=== PATIENT | female | born 1970 | race Caucasian/White ===

== ENCOUNTER 2020-07-26 09:12 | Outpatient (REF) | payer OTHER, SELFPAY ==
[2020-07-26 10:06] LABS: Anion Gap 11 (12-20); Blood Urea Nitrogen 11 mg/dL (9-16); Calcium 9.4 mg/dL (8.4-10.2); Carbon Dioxide 28 mmol/L (22-29); Chloride 102 mmol/L (96-108); Estimated Glomerular Filt Rate > 60; Glucose Random 121 mg/dL (60-115); Potassium 4.3 mmol/l (3.3-5.1); Sodium 137 mmol/L (135-145)
== END 2020-07-26 09:13 | disposition home or self-care (01) ==
LOC: HO.LAB 09:12
PROVIDERS: Visit Provider Hospitalist
DX: M79.89 Other specified soft tissue disorders (principal)
CPT/HCPCS: 80048

== ENCOUNTER → 2020-08-05 15:41 | Outpatient (BNVA) | payer OTHER, SELFPAY | PROVIDERS: PCP Internal Medicine; Referring Provider Internal Medicine; Visit Provider Surgery | DX: E66.01 Morbid (severe) obesity due to excess calories (principal); Z68.42 Body mass index [BMI] 45.0-49.9, adult | CPT/HCPCS: 99214 ==

== ENCOUNTER 2020-08-06 12:51 | Outpatient (REF) | payer OTHER, SELFPAY ==
--- NOTE | 2020-08-06 14:09 | XR_ITS ---
EXAMINATION: XR HAND, RIGHT CLINICAL INFORMATION: Fibromyalgia COMPARISON: None TECHNIQUE: PA, lateral, and oblique views of the right hand. FINDINGS: The bones and soft tissues are normal. No fracture. Alignment is anatomic. Joint spaces are maintained. No erosions or soft tissue calcifications. IMPRESSION: Normal right hand.
== END 2020-08-06 12:52 | disposition home or self-care (01) ==
LOC: HO.XRAY 12:51
PROVIDERS: PCP Internal Medicine; Referring Provider Internal Medicine; Visit Provider Student in an Organized Health Care Education/Training Program
DX: M79.7 Fibromyalgia (principal)
CPT/HCPCS: 73130; 99213

== ENCOUNTER 2020-08-09 15:33 | Outpatient (REF) | payer OTHER, SELFPAY | END 2020-08-09 15:34 | disposition home or self-care (01) | LOC: HO.LAB 15:33 | PROVIDERS: PCP Internal Medicine; Visit Provider Internal Medicine | DX: Z20.828 Contact with and (suspected) exposure to other viral communicable diseases (principal) | CPT/HCPCS: 87635 ==

== ENCOUNTER → 2020-08-13 11:16 | Outpatient (BNVA) | payer OTHER, SELFPAY | PROVIDERS: PCP Internal Medicine; Referring Provider Internal Medicine; Visit Provider Hospitalist | DX: G47.33 Obstructive sleep apnea (adult) (pediatric) (principal); J45.40 Moderate persistent asthma, uncomplicated; J40 Bronchitis, not specified as acute or chronic; Z99.89 Dependence on other enabling machines and devices | CPT/HCPCS: 99212 ==

== ENCOUNTER → 2020-09-10 08:02 | Outpatient (BNVA) | payer OTHER, SELFPAY | PROVIDERS: Visit Provider Physician Assistant | DX: E66.01 Morbid (severe) obesity due to excess calories (principal); Z68.42 Body mass index [BMI] 45.0-49.9, adult | CPT/HCPCS: Q3014 ==

== ENCOUNTER → 2020-09-24 08:10 | Outpatient (BNVA) | payer OTHER, SELFPAY | PROVIDERS: PCP Internal Medicine; Visit Provider Physician Assistant | DX: E66.01 Morbid (severe) obesity due to excess calories (principal); Z68.42 Body mass index [BMI] 45.0-49.9, adult | CPT/HCPCS: Q3014 ==

== ENCOUNTER → 2020-10-08 08:07 | Outpatient (BNVA) | payer OTHER, SELFPAY | PROVIDERS: PCP Internal Medicine; Visit Provider Physician Assistant | DX: E66.01 Morbid (severe) obesity due to excess calories (principal); Z68.42 Body mass index [BMI] 45.0-49.9, adult | CPT/HCPCS: Q3014 ==

== ENCOUNTER → 2020-10-31 08:22 | Outpatient (BNVA) | payer OTHER, SELFPAY | PROVIDERS: PCP Internal Medicine; Visit Provider Surgery | DX: Z76.89 Persons encountering health services in other specified circumstances (principal) ==

== ENCOUNTER 2020-11-28 19:47 | Emergency (ER) | payer OTHER, SELFPAY ==
--- NOTE | ~2020-11-28 | XR_ITS ---
EXAMINATION: CHEST 2 VIEWS CLINICAL INFORMATION: Right-sided pain. COMPARISON: 10/19/2019. TECHNIQUE: PA and lateral views of the chest were obtained. FINDINGS: The cardiac silhouette is not enlarged. The mediastinal and hilar contours are unremarkable. There are neither pleural effusions nor pneumothoraces. There are no consolidations. The osseous structures are stable. XR/XR chest 2V IMPRESSION: No evidence for acute disease.
--- NOTE | ~2020-11-28 | US_ITS ---
EXAMINATION: ABDOMINAL ULTRASOUND LIMITED CLINICAL INFORMATION: Right upper quadrant pain. COMPARISON: None. TECHNIQUE: Real-time imaging of the right upper quadrant abdominal viscera. FINDINGS: PANCREAS: The visualized pancreatic head and body are normal in appearance. The remainder of the pancreas is obscured from visualization by the overlying bowel gas. LIVER: The liver is of normal size and diffuse increased echogenicity without focal lesions nor intrahepatic biliary ductal dilation. GALLBLADDER: Normal. The gallbladder is physiologically distended without evidence of stones, sludge, polyps, wall thickening or pericholecystic fluid. COMMON BILE DUCT: Normal in caliber measuring 0.3 cm in diameter. RIGHT KIDNEY: Normal. No hydronephrosis. No renal calculi or focal parenchymal lesions. The kidney measures 11.2 cm in maximum dimension. FREE FLUID: None. US/US abdomen limited IMPRESSION: Liver of diffuse increased echogenicity without focal lesions. The appearance is nonspecific, but consistent with fatty infiltration. Neither cholelithiasis nor cholecystitis.
--- NOTE | ~2020-11-28 | CT_ITS ---
EXAMINATION: CT ABDOMEN AND PELVIS WITH CONTRAST CLINICAL INFORMATION: Right upper quadrant pain. COMPARISON: Multiple prior exams are reviewed. The most recent is from 11/28/2020. TECHNIQUE: Contiguous axial thin section helical images of the abdomen and pelvis were performed following the administration of 85 mL of intravenous Omnipaque 350. The data set was reformatted in the coronal and sagittal planes and reviewed on an independent workstation. DLP: 979 mGy-cm. FINDINGS: The visualized lung bases are clear. The visualized portions of the heart are unremarkable. The liver is of normal size and diffuse decreased attenuation without focal lesions nor intrahepatic biliary ductal dilation. A normal gallbladder is identified. There is no wall thickening or discernible pericholecystic fluid. The spleen, pancreas, adrenal glands are unremarkable. Both kidneys are of normal size and attenuation without hydronephrosis or nephrolithiasis. Following the administration of IV contrast, prompt symmetric nephrograms are displayed. There is no abdominal free fluid. There is neither mesenteric nor retroperitoneal lymphadenopathy. There is scattered sigmoid diverticulosis without evidence of diverticulitis; otherwise, unremarkable unopacified loops of small and large bowel are identified. A normal appendix is identified. There is no pelvic free fluid. The urinary bladder is unremarkable. There is neither pelvic nor inguinal lymphadenopathy. Bone windows: Neither sclerotic nor lytic bone lesions are identified. CT/CT abdomen pelvis w con IMPRESSION: No acute abdominal or pelvic inflammatory or infectious processes. Hepatic steatosis. Automated exposure control (Care Dose) Adjustment of the mA and/or kv according to patient size (this includes techniques or standardized protocols for targeted exams where dose is matched to indication / reason for exam; i.e. extremities or head).
[2020-11-28 19:58] VITALS: BP 156/87; PULSE 87; RESP 18; TEMP 37.1; O2SAT 97; BMI 47.7
--- NOTE | 2020-11-28 22:05 | ED_ITS ---
HPI - General Adult General Chief complaint: General Medical Stated complaint: Back pain Time Seen by Provider: 11/28/20 21:46 Source: patient Mode of arrival: ambulatory History of Present Illness HPI narrative: This is a 50-year-old female who states that she has been having right upper quadrant pain radiating into the back for approximately 1 week that is associated with nausea worsens with sitting and improves with standing and is so she with some mild diarrhea and urinary frequency. Otherwise, she denies any fevers, chills, vomiting, cough. She states that she does have a history of hysterectomy but still has her gallbladder and appendix. Related Data Home Medications Medication Instructions Recorded Confirmed albuterol sulfate 2.5 mg INHALATION Q6H 08/05/20 10/08/20 albuterol sulfate 90 mcg/actuation 2 puff INHALATION QID 08/05/20 10/08/20 aerosol inhaler fluticasone furoate 100 1 inh INHALATION DAILY 08/05/20 10/08/20 mcg-vilanterol 25 mcg/dose inhalation powder furosemide 20 mg tablet 20 mg PO DAILY 08/05/20 10/08/20 oxygen-air delivery systems #1 08/05/20 10/08/20 pantoprazole 40 mg tablet,delayed 40 mg PO DAILY 08/05/20 10/08/20 release umeclidinium 62.5 mcg/actuation 1 inh INHALATION BEDTIME 08/05/20 10/08/20 blister powder for inhalation venlafaxine 75 mg capsule,extended 75 mg PO BEDTIME 08/05/20 10/08/20 release 24 hr vitamin A 8,000 unit capsule 10,000 unit PO DAILY cap 08/05/20 10/08/20 gabapentin 300 mg capsule 600 mg PO BEDTIME cap 08/06/20 10/08/20 prednisone 10 mg tablet 10 mg PO DAILY 10/08/20 10/08/20 Previous Rx's Medication Instructions Recorded montelukast 10 mg tablet 10 mg PO DAILY #90 tab 11/07/20 Allergies Allergy/AdvReac Type Severity Reaction Status Date / Time No Known Allergies Allergy Verified 08/13/20 11:52 [No Known Allergies*] Review of Systems Review of Systems: Pertinent positives and negatives as stated in HPI and 10 point review of systems is otherwise negative. PMFSH Past Medical History Source: nursing notes reviewed Medical History Asthma Bronchitis Chronic back pain Chronic chest pain COVID-19 Fibromyalgia Fibromyalgia Lumbar spondylosis Migraine headache Morbid obesity with BMI of 45.0-49.9, adult Obstructive sleep apnea TOPHER on CPAP Surgical History History of bilateral carpal tunnel release History of History of colonoscopy History of esophagogastroduodenoscopy (EGD) History of neck surgery History of partial hysterectomy History of right oophorectomy Other specified postprocedural states Family History Family History Father Pacemaker Cardiovascular disease Diabetes mellitus Mother Lupus Brother Seizure disorder Cardiovascular disease Brother No problems noted. Brother No problems noted. Brother No problems noted. Sister No problems noted. Sister No problems noted. Son No problems noted. Daughter No problems noted. Daughter No problems noted. Social History Social History Alcohol intake: never Smoking Status: Never smoker Advance Directives: No Advance Directives Information Provided: Yes Physical Exam Vital Signs: Vital Signs: Last Vital Signs Temp 98.2 F 11/28/20 22:20 Pulse 72 11/29/20 00:00 Resp 18 11/29/20 00:00 BP 120/61 11/29/20 00:00 Pulse Ox 99 11/29/20 00:00 Body Mass Index 47.7 VITAL SIGNS: Reviewed. GENERAL: Well developed, well nourished, moderate distress. NOSE: Nares patent bilateral OROPHARYNX: no oral lesions noted, posterior pharynx clear NECK: Supple, no adenopathy LUNGS: Normal breath sounds. No adventitious sounds or accessory muscle use. SpO2<97> CARDIOVASCULAR: Regular rate and rhythm without noted murmurs, no JVD or lower extremity edema. ABDOMEN: Obese, Soft, tenderness in the right upper quadrant without CVA tenderness, non-distended with bowel sounds. NEUROLOGIC: Alert and oriented x 4. Strength and sensation to light touch were grossly intact x 4. Course Course Course Narrative: This is a 50-year-old female with history and clinical presentation suggestive of possible cholecystitis, choledocholithiasis, pancreatitis. I doubt pneumonia, diverticulitis, renal colic. On review of all the investigations there is no evidence of cholecystitis, choledocholithiasis, cholelithiasis, pancreatitis, pneumonia, renal colic. Suspected this time this is primarily muscular strain for which patient is already receiving medications from her primary care provider. She was informed of all results and findings and encouraged to continue with the current regimen with the addition of a lidocaine patch for additional symptom relief. Medical Decision Making Lab Data Result diagrams: 11/28/20 22:19 11/28/20 22:19 Labs: Lab Results 11/28/20 11/28/20 Range/Units 22:19 22:19 WBC 7.6 (4.8-10.8) X10*3/uL RBC 4.45 (4.20-5.50) X10*6/uL Hgb 12.9 (12.0-16.0) g/dl Hct 39.5 (37-47) % MCV 88.8 (80-98) fL MCH 29.0 (27.0-33.0) pg MCHC 32.7 (31.0-35.0) g/dl RDW 13.7 (11.0-16.0) % Plt Count 249 (160-400) X10*3/uL MPV 10.0 (9.4-12.3) fL Immature Gran % (Auto) 0.3 (0.0-0.4) % Neut % (Auto) 56.0 (45-73) % Lymph % (Auto) 34.7 (20-40) % Hinds % (Auto) 7.4 (2-11) % Eos % (Auto) 1.2 (0-4) % Baso % (Auto) 0.4 (0-2) % Lymph # (Auto) 2.6 (1.2-4.9) X10*3/uL Hinds # (Auto) 0.6 (0.1-1.2) X10*3/uL Eos # (Auto) 0.1 (0.0-0.4) X10*3/uL Baso # (Auto) 0.0 (0.0-0.2) X10*3/uL Abs Immat Gran (auto) 0.02 (0.00-0.03) X10*3/uL Absolute Neuts (auto) 4.2 (2.0-8.3) X10*3/uL Absolute Nucleated RBC 0.000 (0.0-0.012) X10*3/uL Nucleated RBC % (auto) 0.0 (0.0-0.2) /100WBC Sodium 140 (135-145) mmol/L Potassium 4.3 (3.3-5.1) mmol/L Chloride 105 (96-108) mmol/L Carbon Dioxide 27 (22-29) mmol/L Anion Gap 12 (12-20) BUN 10 (9-16) mg/dL Creatinine 0.65 (0.5-1.4) mg/dL Estim Creat Clear Calc 125.1 Estimated GFR > 60 Random Glucose 96 (60-115) mg/dL Calcium 9.3 (8.4-10.2) mg/dL Total Bilirubin 0.4 (0.0-1.0) mg/dL AST 19 (5-31) U/L ALT 26 (0-31) U/L Alkaline Phosphatase 76 (39-117) U/L Total Protein 7.4 (6.5-8.0) g/dL Albumin 4.1 (3.5-5.0) g/dL Lipase 8 (8-78) U/L Discharge Plan Discharge Clinical Impression: Muscle strain Patient Disposition: Home, Self-Care Instructions: Muscle Strain (ED) Additional Instructions: 1. Tylenol 1000 mg, por v?a oral, cada 6 horas seg?n sea necesario para controlar el dolor. No exceda los 4000 mg en 24 horas. 2. Contin?e con los medicamentos que le hanks recetado fowler proveedor de atenci?n primaria. 3. Parche de lidoca?na, disponible en todos los [facility] / [facility] / [facility], apl?quelo en el ?jonah de m?xima sensibilidad lori se indica en el empaque exterior. No dude en volver al servicio de urgencias si experimenta un empeoramiento ronen de los s?ntomas o si presenta dificultad para respirar. Prescriptions: No Action montelukast 10 mg tablet 10 mg PO DAILY Qty: 90 RF: 3 venlafaxine 75 mg capsule,extended release 24hr 75 mg PO BEDTIME RF: 0 vitamin A 8,000 unit capsule 10,000 unit PO DAILY RF: 0 albuterol sulfate 2.5 mg /3 mL (0.083 %) solution for nebulization 2.5 mg inhalation Q6H RF: 0 (DME) oxygen-air delivery systems Device See Rx Instructions .ROUTE .MEDSUPPLY Qty: 1 RF: 0 pantoprazole 40 mg tablet,delayed release (DR/EC) 40 mg PO DAILY RF: 0 albuterol sulfate [ProAir HFA] 90 mcg/actuation HFA aerosol inhaler 2 puff inhalation QID RF: 0 Incruse Ellipta 62.5 mcg/actuation blister with device 1 inh inhalation BEDTIME RF: 0 Breo Ellipta 100-25 mcg/dose blister with device 1 inh inhalation DAILY RF: 0 furosemide [Lasix] 20 mg tablet 20 mg PO DAILY RF: 0 gabapentin 300 mg capsule 600 mg PO BEDTIME RF: 0 prednisone 10 mg tablet 10 mg PO DAILY RF: 0 Referrals: Zaina Sam DO [Primary Care Provider] - 2 days (Revaluation management after seen in the emergency department for persistent right sided back pain. Workup was negative for evidence of pneumonia, cholecystitis, pancreatitis, renal colic.) Print Language: Gibraltarian
[2020-11-28] MEDS: Ketorolac Tromethamine 15 MG/ML VIAL IVPUSH (22:15)
[2020-11-28] MEDS: 0.9 % Sodium Chloride 1,000 ML 999 ML IV (22:15)
[2020-11-28 22:20] VITALS: BP 132/71; PULSE 65; RESP 16; TEMP 36.8; O2SAT 98
[2020-11-28 22:23] LABS: MANUAL DIFF FLAG NO
[2020-11-28 22:25] LABS: Basophils Percent Auto 0.4 % (0-2); Eosinophils Absolute Auto 0.1 X10*3/uL (0.0-0.4); Eosinophils Percent Auto 1.2 % (0-4); Hematocrit 39.5 % (37-47); Hemoglobin 12.9 g/dl (12.0-16.0); Imm Gran Abs Auto 0.02 X10*3/uL (0.00-0.03); Imm Gran Pct Auto 0.3 % (0.0-0.4); Lymphocytes Absolute Auto 2.6 X10*3/uL (1.2-4.9); Lymphocytes Percent Auto 34.7 % (20-40); Mean Corpuscular HGB Conc 32.7 g/dl (31.0-35.0); Mean Corpuscular Volume 88.8 fL (80-98); Monocytes Absolute Auto 0.6 X10*3/uL (0.1-1.2); Monocytes Percent Auto 7.4 % (2-11); Neutrophils Absolute Auto 4.2 X10*3/uL (2.0-8.3); Platelet Count 249 X10*3/uL (160-400); Red Blood Count 4.45 X10*6/uL (4.20-5.50); Red Cell Distribution Width 13.7 % (11.0-16.0); White Blood Count 7.6 X10*3/uL (4.8-10.8)
[2020-11-28 22:55] LABS: Alanine Aminotransferase 26 U/L (0-31); Albumin Level 4.1 g/dL (3.5-5.0); Alkaline Phosphatase 76 U/L (39-117); Anion Gap 12 (12-20); Aspartate Amino Transferase 19 U/L (5-31); Bilirubin Total 0.4 mg/dL (0.0-1.0); Blood Urea Nitrogen 10 mg/dL (9-16); Calcium 9.3 mg/dL (8.4-10.2); Carbon Dioxide 27 mmol/L (22-29); Chloride 105 mmol/L (96-108); Creatinine Clr Calc Pharmacy 125.1; Estimated Glomerular Filt Rate > 60; Glucose Random 96 mg/dL (60-115); Lipase 8 U/L (8-78); Potassium 4.3 mmol/L (3.3-5.1); Sodium 140 mmol/L (135-145); Total Protein 7.4 g/dL (6.5-8.0)
--- NOTE | 2020-11-28 23:14 | PC.NURSE ---
PATIENT AWAY FOR ULTRASOUND.
[2020-11-29] VITALS: BP 120/61; PULSE 72; RESP 18; O2SAT 99
[2020-11-29] MEDS: iohexoL 350 MG/ML 100 ML INFUS..BTL 85 ML IV (00:31)
[2020-11-29 01:12] LABS: Glucose Urine UA NEG (NEG); Leukocyte Esterase Urine NEG (NEG); Nitrite Urine NEG (NEG); Specific Gravity - Urine >= 1.030 (1.005-1.025); Urine Blood 1+ (NEG); Urine Ketones NEG (NEG); Urine Protein NEG (NEG-TRACE)
[2020-11-29 01:20] LABS: Appearance Urine CLEAR; Color Urine YELLOW
[2020-11-29 01:31] LABS: Mucus Urine 1+ /LPF; RBC Urine 0-2 /HPF (0); Squamous Epithelial Cell Urine 1+ /LPF; WBC Urine 0 /HPF (0-4)
== END 2020-11-29 02:27 | disposition home or self-care (01) ==
PROVIDERS: Emergency Provider Student in an Organized Health Care Education/Training Program; PCP Internal Medicine
DX: M54.5 Low back pain (principal); R10.11 Right upper quadrant pain; R07.89 Other chest pain; Z86.16 Personal history of COVID-19
CPT/HCPCS: 36415; 71046; 74177; 76705; 80053; 81001; 83690; 85025; 96361; 96374; 99283; 99284; J1885; Q9967

== ENCOUNTER → 2020-12-05 13:34 | Outpatient (BNVA) | payer OTHER, SELFPAY | PROVIDERS: Visit Provider Surgery | DX: E66.01 Morbid (severe) obesity due to excess calories (principal); Z68.42 Body mass index [BMI] 45.0-49.9, adult | CPT/HCPCS: 99212 ==

== ENCOUNTER 2020-12-23 10:07 | Outpatient (REF) | payer OTHER, SELFPAY ==
--- NOTE | ~2020-12-23 | XR_ITS ---
EXAMINATION: XR CHEST CLINICAL INFORMATION: Moderate persistent asthma. COMPARISON: 11/29/2020 TECHNIQUE: 2 views of the chest were obtained. FINDINGS: The lungs are well expanded. There is no focal consolidation, edema, or effusion. Diffuse bronchial wall thickening noted. No pneumothorax. The cardiomediastinal silhouette is within normal limits. No acute osseous abnormality. XR/XR chest 2V IMPRESSION: No dense consolidation. Bronchial wall thickening can be seen with a small airways process such as asthma or atypical/viral infection.
--- NOTE | 2020-12-23 10:47 | ECG_ITS ---
Test Reason : MOD PERSIS ASTHMA Blood Pressure : / mmHG Vent. Rate : 067 BPM Atrial Rate : 067 BPM P-R Int : 128 ms QRS Dur : 088 ms QT Int : 408 ms P-R-T Axes : 051 049 039 degrees QTc Int : 431 ms Normal sinus rhythm Normal ECG When compared with ECG of 12-JUN-2020 17:31, No significant change was found Referred By: Susana Maxwell Electronically Signed By:Emiliano Shaikh
[2020-12-27 01:57] LABS: Vitamin A 34 mcg/dL (38-98)
== END 2020-12-23 10:08 | disposition home or self-care (01) ==
LOC: HO.LAB 10:07
PROVIDERS: Absent Provider Physician Assistant; PCP Internal Medicine; Visit Provider Surgery
DX: E66.01 Morbid (severe) obesity due to excess calories (principal); E50.9 Vitamin A deficiency, unspecified; J45.40 Moderate persistent asthma, uncomplicated; G47.33 Obstructive sleep apnea (adult) (pediatric); R06.02 Shortness of breath; Z01.818 Encounter for other preprocedural examination; Z99.89 Dependence on other enabling machines and devices; Z68.42 Body mass index [BMI] 45.0-49.9, adult; Z79.899 Other long term (current) drug therapy; Z71.3 Dietary counseling and surveillance
CPT/HCPCS: 36415; 71046; 84590; 93005; 99212

== ENCOUNTER → 2021-01-30 09:58 | Outpatient (BNVA) | payer OTHER, SELFPAY | PROVIDERS: PCP Internal Medicine; Visit Provider Surgery | DX: E66.01 Morbid (severe) obesity due to excess calories (principal); Z68.42 Body mass index [BMI] 45.0-49.9, adult | CPT/HCPCS: 99212 ==

== ENCOUNTER 2021-02-21 09:40 | Outpatient (REF) | payer OTHER, SELFPAY ==
[2021-02-25 21:22] LABS: Vitamin A 36 mcg/dL (38-98)
== END 2021-02-21 09:41 | disposition home or self-care (01) ==
LOC: HO.LAB 09:40
PROVIDERS: PCP Internal Medicine; Visit Provider Surgery
DX: Z01.818 Encounter for other preprocedural examination (principal); E66.01 Morbid (severe) obesity due to excess calories; Z68.42 Body mass index [BMI] 45.0-49.9, adult; E50.9 Vitamin A deficiency, unspecified
CPT/HCPCS: 36415; 84590; Q3014

== ENCOUNTER → 2021-04-08 10:34 | Outpatient (BNVA) | payer OTHER, SELFPAY | PROVIDERS: PCP Internal Medicine; Visit Provider Physician Assistant | DX: E66.01 Morbid (severe) obesity due to excess calories (principal); Z68.42 Body mass index [BMI] 45.0-49.9, adult | CPT/HCPCS: 99212 ==

== ENCOUNTER → 2021-04-10 11:02 | Outpatient (BNVA) | payer OTHER, SELFPAY | PROVIDERS: PCP Internal Medicine; Visit Provider Student in an Organized Health Care Education/Training Program | DX: M47.814 Spondylosis without myelopathy or radiculopathy, thoracic region (principal); M47.816 Spondylosis without myelopathy or radiculopathy, lumbar region; M79.7 Fibromyalgia; E66.01 Morbid (severe) obesity due to excess calories; G47.33 Obstructive sleep apnea (adult) (pediatric); Z68.42 Body mass index [BMI] 45.0-49.9, adult; Z99.89 Dependence on other enabling machines and devices; Z79.899 Other long term (current) drug therapy | CPT/HCPCS: 99212 ==

== ENCOUNTER → 2021-05-02 08:09 | Outpatient (BNVA) | payer OTHER, SELFPAY | PROVIDERS: PCP Internal Medicine; Visit Provider Physician Assistant | DX: E66.01 Morbid (severe) obesity due to excess calories (principal); Z68.42 Body mass index [BMI] 45.0-49.9, adult | CPT/HCPCS: Q3014 ==

== ENCOUNTER → 2021-05-08 08:08 | Outpatient (BNVA) | payer OTHER, SELFPAY | PROVIDERS: PCP Internal Medicine; Visit Provider Dietitian, Registered ==

== ENCOUNTER → 2021-05-13 14:39 | Outpatient (BNVA) | payer OTHER, SELFPAY | PROVIDERS: PCP Internal Medicine; Referring Provider Internal Medicine; Visit Provider Surgery ==

== ENCOUNTER → 2021-07-02 13:01 | Outpatient (BNVA) | payer OTHER, SELFPAY | PROVIDERS: PCP Internal Medicine; Visit Provider Nurse Practitioner Family | DX: R00.2 Palpitations (principal); R07.9 Chest pain, unspecified; G89.29 Other chronic pain | CPT/HCPCS: 99212 ==

== ENCOUNTER → 2021-07-04 11:19 | Outpatient (BNVA) | payer OTHER, SELFPAY | PROVIDERS: PCP Internal Medicine; Visit Provider Surgery | DX: E66.01 Morbid (severe) obesity due to excess calories (principal); Z68.42 Body mass index [BMI] 45.0-49.9, adult | CPT/HCPCS: 99212 ==

== ENCOUNTER → 2021-07-21 11:28 | Outpatient (REF) | payer OTHER, SELFPAY ==
--- NOTE | 2021-07-21 11:32 | HM_ITS ---
Conclusion: 1. Patient was monitored for total period of 3 days and 20 hours 2. Baseline is normal sinus rhythm with average heart of 79 beats per minute 3. No significant pauses or bradycardia noted 4. Total of 4 isolated PACs noted a cardiac for very rare PACs 5. No patient reported symptoms MTDD
== END ==
LOC: HO.CARD 11:28
PROVIDERS: Visit Provider Nurse Practitioner Family
DX: R00.2 Palpitations (principal); I49.1 Atrial premature depolarization
CPT/HCPCS: 93242

== ENCOUNTER → 2021-07-25 09:22 | Outpatient (BNVA) | payer OTHER, SELFPAY | PROVIDERS: Visit Provider Physician Assistant Surgical | DX: E66.01 Morbid (severe) obesity due to excess calories (principal); Z68.42 Body mass index [BMI] 45.0-49.9, adult | CPT/HCPCS: 99212 ==

== ENCOUNTER → 2021-08-08 08:30 | Outpatient (BNVA) | payer OTHER, SELFPAY | PROVIDERS: Visit Provider Physician Assistant Surgical | DX: E66.01 Morbid (severe) obesity due to excess calories (principal); Z68.42 Body mass index [BMI] 45.0-49.9, adult | CPT/HCPCS: 99212 ==

== ENCOUNTER → 2021-08-13 12:46 | Outpatient (BNVA) | payer OTHER, SELFPAY | PROVIDERS: Visit Provider Nurse Practitioner Family | DX: M79.89 Other specified soft tissue disorders (principal); R00.2 Palpitations; R07.9 Chest pain, unspecified; G89.29 Other chronic pain | CPT/HCPCS: 99212 ==

== ENCOUNTER → 2021-09-01 08:01 | Outpatient (BNVA) | payer OTHER, SELFPAY | PROVIDERS: Visit Provider Physician Assistant Surgical ==

== ENCOUNTER → 2021-09-10 08:04 | Outpatient (BNVA) | payer OTHER, SELFPAY | PROVIDERS: Visit Provider Physician Assistant Surgical | CPT/HCPCS: Q3014 ==

== ENCOUNTER → 2021-09-24 09:28 | Outpatient (BNVA) | payer OTHER, SELFPAY | PROVIDERS: Visit Provider Hospitalist | DX: J45.41 Moderate persistent asthma with (acute) exacerbation (principal); G47.33 Obstructive sleep apnea (adult) (pediatric); J40 Bronchitis, not specified as acute or chronic; Z99.89 Dependence on other enabling machines and devices | CPT/HCPCS: 99212 ==

== ENCOUNTER → 2021-10-14 08:05 | Outpatient (BNVA) | payer OTHER, SELFPAY | PROVIDERS: Visit Provider Physician Assistant Surgical | CPT/HCPCS: Q3014 ==

== ENCOUNTER 2021-12-12 12:49 | Outpatient (REF) | payer OTHER, SELFPAY ==
[2021-12-12 13:41] LABS: MANUAL DIFF FLAG NO
[2021-12-12 14:07] LABS: Basophils Percent Auto 0.3 % (0-2); Eosinophils Absolute Auto 0.1 X10*3/uL (0.0-0.4); Eosinophils Percent Auto 0.9 % (0-4); Hematocrit 39.8 % (37.0-47.0); Hemoglobin 13.1 g/dl (12.0-16.0); Imm Gran Abs Auto 0.02 X10*3/uL (0.00-0.03); Imm Gran Pct Auto 0.3 % (0.0-0.4); Lymphocytes Absolute Auto 2.2 X10*3/uL (1.2-4.9); Lymphocytes Percent Auto 37.2 % (20-40); Mean Corpuscular HGB Conc 32.9 g/dl (31.0-35.0); Mean Corpuscular Hemoglobin 28.7 pg (27.0-33.0); Mean Corpuscular Volume 87.3 fL (80.0-98.0); Mean Platelet Volume 9.8 fL (9.4-12.3); Monocytes Absolute Auto 0.4 X10*3/uL (0.1-1.2); Monocytes Percent Auto 6.6 % (2-11); Neutrophils Absolute Auto 3.2 x10*3/uL (2.0-8.3); Neutrophils Percent Auto 54.7 % (45-73); Platelet Count 265 X10*3/uL (160-400); Red Blood Count 4.56 X10*6/uL (4.20-5.50); Red Cell Distribution Width 13.2 % (11.0-16.0); White Blood Count 5.8 X10*3/uL (4.8-10.8)
[2021-12-12 14:31] LABS: Anion Gap 11 (12-20); Blood Urea Nitrogen 8 mg/dL (9-16); Calcium 9.8 mg/dL (8.4-10.2); Carbon Dioxide 25 mmol/L (22-29); Chloride 104 mmol/L (96-108); Estimated Glomerular Filt Rate > 60; Glucose Random 124 mg/dL (60-115); Potassium 4.4 mmol/L (3.3-5.1); Sodium 136 mmol/L (135-145)
[2021-12-12 14:34] LABS: B Type Natriuretic Peptide 11 pg/mL (<100)
[2021-12-12 14:45] LABS: Erythrocyte Sedimentation Rate 22 MM/HR (0-20)
[2021-12-17 17:26] LABS: Vitamin A 37 mcg/dL (38-98)
== END 2021-12-12 12:50 | disposition home or self-care (01) ==
LOC: HO.LAB 12:49
PROVIDERS: Surgery; PCP Internal Medicine; Visit Provider Hospitalist
DX: Z01.818 Encounter for other preprocedural examination (principal); E50.9 Vitamin A deficiency, unspecified; R06.00 Dyspnea, unspecified; R60.0 Localized edema
CPT/HCPCS: 36415; 80048; 83880; 84590; 85025; 85652; 99212

== ENCOUNTER → 2021-12-15 08:35 | Outpatient (BNVA) | payer OTHER, SELFPAY | PROVIDERS: PCP Internal Medicine; Visit Provider Physician Assistant Surgical | DX: E66.01 Morbid (severe) obesity due to excess calories (principal); Z68.42 Body mass index [BMI] 45.0-49.9, adult | CPT/HCPCS: 99212 ==

== ENCOUNTER → 2022-03-12 14:10 | Outpatient (BNVA) | payer OTHER, SELFPAY | PROVIDERS: PCP Internal Medicine; Visit Provider Hospitalist | DX: J45.41 Moderate persistent asthma with (acute) exacerbation (principal); J40 Bronchitis, not specified as acute or chronic; G47.33 Obstructive sleep apnea (adult) (pediatric); R06.00 Dyspnea, unspecified; R60.0 Localized edema; Z99.89 Dependence on other enabling machines and devices | CPT/HCPCS: 99212 ==

== ENCOUNTER → 2022-04-14 10:54 | Outpatient (BNVA) | payer OTHER, SELFPAY | PROVIDERS: Visit Provider Nurse Practitioner Family | DX: M79.7 Fibromyalgia (principal); M47.816 Spondylosis without myelopathy or radiculopathy, lumbar region; Z79.899 Other long term (current) drug therapy | CPT/HCPCS: 99212 ==

== ENCOUNTER 2022-04-16 09:13 | Outpatient (REF) | payer OTHER, SELFPAY ==
[2022-04-16 09:27] LABS: MANUAL DIFF FLAG NO
[2022-04-16 10:58] LABS: Basophils Percent Auto 0.3 % (0-2); Eosinophils Absolute Auto 0.1 X10*3/uL (0.0-0.4); Hematocrit 36.9 % (37.0-47.0); Imm Gran Abs Auto 0.02 X10*3/uL (0.00-0.03); Imm Gran Pct Auto 0.3 % (0.0-0.4); Lymphocytes Percent Auto 33.3 % (20-40); Mean Corpuscular HGB Conc 32.5 g/dl (31.0-35.0); Mean Corpuscular Hemoglobin 28.6 pg (27.0-33.0); Mean Corpuscular Volume 87.9 fL (80.0-98.0); Mean Platelet Volume 10.5 fL (9.4-12.3); Monocytes Absolute Auto 0.4 X10*3/uL (0.1-1.2); Monocytes Percent Auto 6.1 % (2-11); Neutrophils Absolute Auto 3.5 x10*3/uL (2.0-8.3); Platelet Count 238 X10*3/uL (160-400); Red Cell Distribution Width 13.4 % (11.0-16.0); White Blood Count 5.9 X10*3/uL (4.8-10.8)
[2022-04-16 11:21] LABS: Troponin-I High Sensitivity < 3.5 ng/L (<3.5-17.0)
[2022-04-16 11:41] LABS: Erythrocyte Sedimentation Rate 20 MM/HR (0-20)
[2022-04-17 18:47] LABS: Immunoglobulin E 941 kU/L (<OR=114)
== END 2022-04-16 09:14 | disposition home or self-care (01) ==
LOC: HO.LAB 09:13
PROVIDERS: PCP Internal Medicine; Visit Provider Hospitalist
DX: R06.00 Dyspnea, unspecified (principal); J40 Bronchitis, not specified as acute or chronic; J45.41 Moderate persistent asthma with (acute) exacerbation; Z01.82 Encounter for allergy testing
CPT/HCPCS: 36415; 82785; 84484; 85025; 85652; 86003

== ENCOUNTER → 2022-04-24 12:55 | Outpatient (BNVA) | payer OTHER, SELFPAY | PROVIDERS: PCP Internal Medicine; Visit Provider Nurse Practitioner Family | DX: M47.26 Other spondylosis with radiculopathy, lumbar region (principal); M25.552 Pain in left hip; M62.838 Other muscle spasm | CPT/HCPCS: 99202 ==

== ENCOUNTER → 2022-04-29 07:17 | Outpatient (REF) | payer OTHER, SELFPAY ==
--- NOTE | 2022-04-29 07:19 | CA_ITS ---
Transthoracic Echocardiogram Patient (Last, First, Middle): Hanna Toney, Gender: Female Date of : 1970 Age: 51 Procedure Date: 04/29/2022 Procedure Type: Transthoracic Echocardiogram Location: OP Height: 157.48 cm Weight: 121.11 kg BSA: 2.16 m2 Heart Rate: bpm BP: 115 / 70 mmHg Lead Assembler: TO/VH Referring MD: Perez Krishnan MD Buckle Sewer Machine: Rene Almanza MD Symptoms: I27.20 - Pulmonary hypertension, unspecified Study Quality: Fair ECG Rhythm: Sinus Conclusions: - 1. Normal LV systolic and diastolic function 2. Normal cardiac valvular Doppler is 3. Normal RV systolic pressure 4. No pericardial effusion Findings Left Ventricle Normal left ventricular size, thickness, and systolic function. The visually estimated ejection fraction is between 60-65%. Spectral Doppler is indicative of a normal filling pattern. Right Ventricle Normal right ventricular cavity size and systolic function. Atria Both atria are normal in size. There is no evidence of interatrial shunt. Aortic Valve Normal aortic valve structure and function. There is no aortic valve stenosis. There is no aortic valve regurgitation. Mitral Valve There is mild anterior and posterior mitral leaflet thickening. There is trace mitral valve regurgitation. There is no mitral valve stenosis. Pulmonic Valve The pulmonic valve is likely normal. Tricuspid Valve The right ventricular systolic pressure is normal. There is no evidence of pulmonary hypertension. Great Vessels All visible segments of the aorta are normal in size. The pulmonary artery was not well visualized. Venous The inferior vena cava is normal in size and collapses greater than 50% with inspiration. Pericardium/Pleural There is no evidence of pericardial effusion. Measurements 2D Linear Measurements IVSd: 0.89 0.6-0.9/0.6-1.0 cm LVIDd: 5.30 3.9-5.3/4.2-5.9 cm LVIDd Index: 2.45 2.4-3.2/2.2-3.1 cm/m2 LVIDs: 3.21 2.0-3.6 cm LVPWd: 0.86 0.7-1.1 cm LA Diam: 4.00 2.7-3.8/3.0-4.0 cm LAIDs Index: 1.85 1.5-2.3 cm/m2 LV Mass: 210.05 67-162/88-224 g LV Mass Index: 97.25 43-95/49-115 g/m2 LVOT Diam: 2.00 3.0+(-)1.3 cm 2D Systolic Function EF 4C: 65.10 >55% EF 2C: 59.10 >55% EF BiP: 61.90 >55% Mitral Valve MV Pk E: 1.14 MV PK A: 0.81 MV Decel Time: 276.00 E/A: 1.40 E'Lateral: 11.30 E'Medial: 10.20 E/E' Med: 11.20 E/E' Lat: 10.10 PHT: 81.00 MVA PHT: 2.72 Decel [place]: 4.13 Aortic Valve AoV Pk Davin: 2.03 AoV Mn Davin: 1.33 AoV VTI: 0.43 AoV Pk Grad: 16.00 Aov Mn Grad: 8.00 LACHELLE Cont.VTI: 2.05 LVOT LVOT Pk Davin: 1.23 LVOT Mn Davin: 0.77 LVOT VTI: 0.28 LVOT Pk Grad: 6.00 LVOT Mn Grad: 3.00 LVOT Diam: 2.00 LVOT Area: 3.14 Diastolic Function MV Pk E: 1.14 MV Pk A: 0.81 E/A: 1.40 E'Medial: 10.20 E/E' Med: 11.20 E' Laterial: 11.30 E/E' Lat: 10.10 Right Ventricle TAPSE (mm): 27.00 TVS' Davin: 12.60 Tricuspid Valve TR Pk Davin: 2.28 TR Pk Grad: 21.00 RA Press: 3.00 RVSP: 24.00 Great Vessels Aorta Sinus of Valsalva: 3.10 2.0-3.5 cm Ao Asc: 3.10 2.1-3.4 cm Ao Arch: 2.90 Updated in Other Vendor System with Status of Final Rene Almanza MD electronically signed on 04/29/2022 3:40:52 PM with status of Final
== END ==
LOC: HO.CARD 07:17
PROVIDERS: PCP Internal Medicine; Visit Provider Hospitalist
DX: I27.20 Pulmonary hypertension, unspecified (principal)
CPT/HCPCS: 93306

== ENCOUNTER 2022-04-30 11:33 | Outpatient (REF) | payer OTHER, SELFPAY ==
[2022-04-30 12:17] LABS: D Dimer High Sensitivity 179 NG/ML
[2022-04-30 12:35] LABS: Anion Gap 10 (12-20); Blood Urea Nitrogen 7 mg/dL (9-16); Calcium 9.8 mg/dL (8.4-10.2); Carbon Dioxide 26 mmol/L (22-29); Chloride 105 mmol/L (96-108); Estimated Glomerular Filt Rate > 60; Glucose Random 117 mg/dL (60-115); Potassium 4.3 mmol/L (3.3-5.1); Sodium 137 mmol/L (135-145)
[2022-04-30 13:05] LABS: Erythrocyte Sedimentation Rate 23 MM/HR (0-20)
[2022-05-05 09:32] LABS: Anti Nuclear Antibody Screen NEGATIVE (NEGATIVE)
[2022-05-05 14:07] LABS: Cyclic Citrullinated Peptide <16 UNITS
== END 2022-04-30 11:34 | disposition home or self-care (01) ==
LOC: HO.LAB 11:33
PROVIDERS: PCP Internal Medicine; Visit Provider Hospitalist
DX: R07.81 Pleurodynia (principal); J45.41 Moderate persistent asthma with (acute) exacerbation; R06.00 Dyspnea, unspecified; R60.0 Localized edema; G47.33 Obstructive sleep apnea (adult) (pediatric); Z99.89 Dependence on other enabling machines and devices
CPT/HCPCS: 36415; 80048; 85379; 85652; 86038; 86039; 86200; 99212

== ENCOUNTER 2022-05-25 09:03 | Outpatient (REF) | payer OTHER, SELFPAY ==
--- NOTE | ~2022-05-25 | MR_ITS ---
EXAMINATION: MR LUMBAR SPINE WITHOUT AND WITH CONTRAST CLINICAL INFORMATION: Weakness. History of prior surgery. COMPARISON: MRI scan of the lumbar spine 11/06/2015. TECHNIQUE: MRI of the lumbar spine was obtained using routine sequences with and without contrast. Intravenous contrast: Gadavist 10 mL FINDINGS: VERTEBRAL BODIES AND PARASPINAL STRUCTURES: . There is narrowing of intervertebral disc height with loss of signal from the discs at L2-L3 and L4-L5 with disc desiccation at L3-L4. The vertebral bodies have normal height and contour. There are multilevel degenerative endplate contour changes. There are predominantly fatty endplate signal changes at L4-L5. Vertebral body heights are maintained and no acute fractures are demonstrated. There are areas of increased STIR signal in the left pedicles of L4 on L5 which demonstrates mild enhancement; this is nonspecific and may be consistent with reactive inflammatory/degenerative changes. Overall, marrow signal is homogenous. The visualized retroperitoneal and pelvic structures are unremarkable. CONUS MEDULLARIS AND CAUDA EQUINA: Normal, terminating at the level of T12-L1. Lower thoracic spinal cord normal signal without abnormal enhancement. The cauda equina nerve roots and filum terminale appear normal. SPINAL LEVELS: L1-L2: There is mild bilateral facet arthropathy. There is a shallow posterior disc protrusion without significant mass effect on the thecal sac. There is no central stenosis and the neural foramina are patent bilaterally. L2-L3: There is moderate bilateral facet arthropathy with ligamenta flava hypertrophy. There is a diffuse disc bulge which is relatively broad-based posteriorly and there are bilateral foraminal disc protrusions extending far laterally on the left with impingement on the extraforaminal left L2 and exiting right L2 nerve roots, increased compared to prior imaging. There is narrowing of the subarticular recesses particularly on the left and there is mild to moderate central stenosis. L3-L4: There is moderate to severe bilateral facet arthropathy with ligamenta flava hypertrophy. There are sequelae of a left-sided laminotomy. There is a posterior disc protrusion extending into the neural foramina, more prominently on the left and there is likely mild impingement on the exiting left L3 nerve root. There is narrowing of the bilateral subarticular recesses and there is mild to moderate central stenosis. L4-L5: There is moderate to severe bilateral facet arthropathy with ligamenta flava hypertrophy. There is a broad-based posterior disc protrusion with an extruded component extending behind the body of L4 in the midline and there is flattening of the ventral thecal sac with narrowing the bilateral subarticular recesses. There are bilateral foraminal disc protrusions impinging on the exiting L4 nerve roots. There is moderate to severe central stenosis. L5-S1: There is moderate to severe bilateral facet arthropathy. There is a mild diffuse disc bulge without mass effect on the thecal sac. There is no central stenosis or foraminal nerve root impingement. MR/MR lumbar spine wo/w con IMPRESSION: 1. At L4-L5 there is facet arthropathy and there is a posterior disc protrusion/extrusion with flattening of the ventral thecal sac and narrowing of the subarticular recesses. There is moderate to severe central stenosis. There are bilateral foraminal disc protrusions impinging the exiting L4 nerve roots. 2. At L3-L4 there are sequelae of a left-sided laminotomy. There is a posterior disc protrusion extending into the neural foramina with impingement on the exiting left L3 nerve root. There is mild to moderate central stenosis. 3. At L2-L3 there is bilateral facet arthropathy. There is a disc protrusion extending far laterally on the left with impingement on the extraforaminal left L2 nerve root. There is also impingement on the exiting right L2 nerve root. These findings are increased compared to prior imaging. There is mild to moderate central stenosis.
--- NOTE | ~2022-05-25 | XR_ITS ---
EXAMINATION: XR HIP, LEFT CLINICAL INFORMATION: Pain COMPARISON: None TECHNIQUE: Two views of the left hip. FINDINGS: Bone alignment is normal. No fracture or dislocation is seen. There is mild arthritis at the hip joint with small osteophytes. There is soft tissue calcification adjacent to the left greater trochanter suggestive of tendinitis or bursitis. XR/XR hip LT min 2V IMPRESSION: Mild arthritis at the left hip joint and soft tissue calcifications adjacent to the left greater trochanter.
== END 2022-05-25 09:04 | disposition home or self-care (01) ==
LOC: HO.MRI 09:03
PROVIDERS: Visit Provider Nurse Practitioner Family
DX: M25.552 Pain in left hip (principal); M54.16 Radiculopathy, lumbar region; Z98.890 Other specified postprocedural states
CPT/HCPCS: 72158; 73502; A9585

== ENCOUNTER → 2025-02-08 09:28 | Outpatient (BNVA) | payer MEDICARE, SELFPAY | PROVIDERS: PCP Internal Medicine; Visit Provider Physician Assistant Surgical ==

== ENCOUNTER 2025-02-19 07:17 | Day surgery (SDC) | payer MEDICARE, MEDICAID, SELFPAY ==
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
--- NOTE | 2025-02-15 12:13 | HO.ANESPROP2 ---
Documented by User: Payton Justin NP 02/15/25 12:14 HPI - Anesthesia Eval Consult details Narrative: 54yo F for Upper Endoscopy PMFSH Active Problems Active Problems: All Active Problems Lumbar radiculitis (Acute) H/O lumbosacral spine surgery (Acute) Muscle spasm (Acute) Pleuritic chest pain (Acute) Left hip pain (Acute) Lower extremity edema (Acute) Dyspnea (Acute) Leg swelling (Acute) PAC (premature atrial contraction) (Acute) Chronic chest pain (Acute) Palpitation (Acute) Morbid obesity with BMI of 45.0-49.9, adult (Acute) Body mass index [BMI] 45.0-49.9, adult (Acute) Vitamin A deficiency (Acute) Bronchitis (Acute) TOPHER on CPAP (Acute) Asthma (Acute) Lumbar spondylosis (Acute) Fibromyalgia (Acute) Past Medical History Medical History Pleuritic chest pain Lower extremity edema Dyspnea Palpitation COVID-19 Bronchitis TOPHER on CPAP Asthma Lumbar spondylosis Fibromyalgia Chronic chest pain Chronic back pain Fibromyalgia Obstructive sleep apnea Morbid obesity with BMI of 45.0-49.9, adult Migraine headache Family History Family History Father Pacemaker Cardiovascular disease Diabetes mellitus Mother Lupus Brother Seizure disorder Cardiovascular disease Brother No problems noted. Brother No problems noted. Brother No problems noted. Sister No problems noted. Sister No problems noted. Son No problems noted. Daughter No problems noted. Daughter No problems noted. Surgical History Surgical History History of colonoscopy Other specified postprocedural states History of esophagogastroduodenoscopy (EGD) History of right oophorectomy History of History of partial hysterectomy History of neck surgery History of bilateral carpal tunnel release Social History Social History Alcohol intake: never Patient Tobacco Use Status: Never used Tobacco e-Cigarette/Vaping Use: Never Used Use of substances other than those prescribed or required for medical reasons: No Are you DNR?: No Advance Directives: No Advance Directives Information Provided: Yes Meds Allergies Allergy/AdvReac Type Severity Reaction Status Date / Time No Known Allergies Allergy Verified 04/24/22 13:05 [No Known Allergies*] Home Medications ?Medication ?Instructions ?Recorded ?Confirmed ?Last Taken ?Type gabapentin 300 mg capsule 300 mg PO DAILY 12/05/20 04/30/22 Unknown History bupropion HCl 150 mg 24 hr tablet, 150 mg PO BEDTIME 09/24/21 04/30/22 Unknown History extended release gabapentin 400 mg capsule 800 mg PO BEDTIME 04/14/22 04/30/22 Unknown History Assessment and Plan Assessment Anesthesia Assessment: Chart Reviewed Documented by User: Krysta Suh MD 02/19/25 08:03 PMF Past Medical History Medical History Pleuritic chest pain Lower extremity edema Dyspnea Palpitation COVID-19 Bronchitis TOPHER on CPAP Asthma Lumbar spondylosis Fibromyalgia Chronic chest pain Chronic back pain Fibromyalgia Obstructive sleep apnea Morbid obesity with BMI of 45.0-49.9, adult Migraine headache Family History Family History Father Pacemaker Cardiovascular disease Diabetes mellitus Mother Lupus Brother Seizure disorder Cardiovascular disease Brother No problems noted. Brother No problems noted. Brother No problems noted. Sister No problems noted. Sister No problems noted. Son No problems noted. Daughter No problems noted. Daughter No problems noted. Surgical History Surgical History History of colonoscopy Other specified postprocedural states History of esophagogastroduodenoscopy (EGD) History of right oophorectomy History of History of partial hysterectomy History of neck surgery History of bilateral carpal tunnel release History of Problems with Anesthesia: No Social History Social History Alcohol intake: never Patient Tobacco Use Status: Never used Tobacco e-Cigarette/Vaping Use: Never Used Use of substances other than those prescribed or required for medical reasons: No Are you DNR?: No Advance Directives: No Advance Directives Information Provided: Yes Meds Allergies Allergy/AdvReac Type Severity Reaction Status Date / Time No Known Allergies Allergy Verified 04/24/22 13:05 [No Known Allergies*] Home Medications ?Medication ?Instructions ?Recorded ?Confirmed ?Last Taken ?Type gabapentin 300 mg capsule 300 mg PO DAILY 12/05/20 04/30/22 Unknown History bupropion HCl 150 mg 24 hr tablet, 150 mg PO BEDTIME 09/24/21 04/30/22 Unknown History extended release gabapentin 400 mg capsule 800 mg PO BEDTIME 04/14/22 04/30/22 Unknown History Exam Airway Mallampati Class: II TM Dist: >3cm Neck ROM: Full Loose/Missing/Broken Teeth: No Heart: RRR Lungs: CTA Assessment and Plan Assessment Anesthesia Assessment: Anesthesia Plan Discussed Final Anesthetic Review History of Problems with Anesthesia: No NPO: Yes ASA Class: II Final Preanesthetic Review: Meds/Allgs Chart Reviewed, Consent Obtained/Reviewed and Anes Risks/Benef Reviewed Patient Risk: Low Procedure Risk: Intermediate Anesthetic Plan Anesthetic Plan: MAC: Disposition: Standard PACU
[2025-02-19 07:29] VITALS: BMI 39.3
[2025-02-19 07:40] VITALS: BP 119/68; PULSE 55; RESP 12; TEMP 36.2; O2SAT 98
[2025-02-19 07:56] LABS: Glucose, Whole Blood 89 mg/dL (60-115)
--- NOTE | 2025-02-19 07:59 | P.HPSUR_ITS ---
Pre-Procedural Eval Section A - 24 Hr Update-Section A only Date of Service: 02/19/25 The patient is an INPATIENT: No The patient has been examined within 24 hours of the surgical procedure. The History & Physical has been completed within 30 days and I have reviewed it.: Yes Section B - Complete if H&P > 30 days Chief Complaint: Bariatric surgery status Details of Present Illness: Vomiting Relevant Family History (Specify if Yes): No Relevant Social History: None Present Medications: None Medical History: No relevant PMH History of Previous Operations: Relevant previous surgery/procedure and date(s) (laparoscopic Ryan-en-Y gastric bypass) Allergies: Allergies Allergy/AdvReac Type Severity Reaction Status Date / Time No Known Allergies Allergy Verified 04/24/22 13:05 [No Known Allergies*] Review of Systems Sugical H&P ROS: Negative: Constitution, Cardiovascular, Respiratory, Neurological, Psychiatric, Hem-Onc, Allergic/Immunologic, Gastrointestinal, Genitourinary, Musculoskeletal, Integumentary, Endocrine and Eyes/Ears/Nose/Throat Exam Surgical H&P Exam: Normal: HEENT, Normal: Heart, Normal: Lungs, Normal: Extremit ies, Normal: Abdomen, Normal: Skin and Normal: Neurological Plan Diagnosis/Plan: Unchanged (EGD to assess the bypasse's anatomy and the cause of vomiting. Risks of bleeding and perforation were discussed with the patient and she is in agreement with the plan.) I have reviewed the history and physical and performed a pertinent physical examination on my patient. No changes have occurred unless specified. Time Spent With Patient Time: Total time managing care of this patient today ____ minutes.
--- NOTE | 2025-02-19 08:04 | P.BOP_ITS ---
Brief Operative Note Date of Service: 02/19/25 Pre-op diagnosis: Vomiting and abdominal pain after gastric bypass Post-op diagnosis: same (& small anastomotic ulcer) Procedure: PROCEDURE DATE: 02/19/25 PREOPERATIVE DIAGNOSIS: Vomiting and abadominal pain, s/p gastric bypass POSTOPERATIVE DIAGNOSIS: ?Same as above. 1) Small anastomotic ulcer PROCEDURE: Wkheaulk-moyofm-dhpaknbqzak with biopsies Surgeon: ?Ricardo Newell M.D.. Ph.D. Relocation Coordinator: ?None ? Anesthesia: IV sedation Estimated blood loss: ?Minimal FINDINGS AND PROCEDURE: ? OPERATIVE INDICATIONS: ?The patient is a 54 year old female known to me who underwent a laparoscopic gastric bypass in [place] 3 months ago. The patient complains of some abdominal pain and vomiting with solid foods.? Based on this information I recommended an upper endoscopy to evaluate the patient's symptoms.? Risks and complications of the surgery were discussed with the patient in advance particularly the possibility of perforation or bleeding that may require surgical intervention. The patient understood the risks and was in agreement with the plan. ? PROCEDURE: After informed consent was obtained by the patient, the patient was ?transferred to the Operating Room and was placed in the supine position.? After successful induction of IV sedation, a mouth block was placed and the patient was placed in the left lateral decubitus position. An upper endoscopy was performed next, the oropharynx and esophagus appeared within the normal limits. There was no hiatal hernia.? The z-line was smooth. A biopsy was obtained from the GE junction. The small pouch was entered, appeared to be of normal size and 5cm long without redundnacy. There was no gastritis and the gastrojejunostomy was patent without stricture. A biopsy was obtained from the gastric pouch. No significant bleeding was noted from any of the biopsy sites. There was a small superficial anastomotic ulcer at the proximal Ryan limb.? At that point the scope was advanced into the proximal small intestine (proximal Ryan limb) which appeared to be normal as well up to 65cm from incisors. The Ryan limb and the pouch were decompressed and the scope was withdrawn from the patient's mouth. The patient was awaken and was transferred in stable condition to the Recovery Room for further care. I was present and performed all steps of the procedure. There were no residents to assist with this case. Ricardo Newell M.D., Ph.D. Surgeon: Candelario Newell MD Anesthesia: MAC Was an Relocation Coordinator used for this Procedure?: No Estimated blood loss (mL): 0 IV fluids (mL): 400 Urine output (mL): 0 (No Fraire to record output) Pathology: other (1) gastric pouch x1, 2) GE junction x1) Condition: stable Disposition: PACU
[2025-02-19] MEDS: Lactated Ringers 1,000 ML 100 ML IVCONT (08:10)
[2025-02-19 08:25] VITALS: BP 105/75; PULSE 73; RESP 18; TEMP 36.1; O2SAT 100
[2025-02-19 08:30] VITALS: BP 123/75; PULSE 74; RESP 18; TEMP 36.1; O2SAT 100
[2025-02-19 08:35] VITALS: BP 119/78; PULSE 64; RESP 18; O2SAT 98
[2025-02-19 08:40] VITALS: BP 111/75; PULSE 61; RESP 17; TEMP 36.1; O2SAT 99
== END 2025-02-19 09:19 | disposition home or self-care (01) ==
PROVIDERS: Visit Provider Surgery
PROC: 0DJ08ZZ Inspection of Upper Intestinal Tract, Via Natural or Artificial Opening Endoscopic (ICD-10-PCS; CPT 43235; principal; 2025-02-19 08:50)
DX: K95.89 Other complications of other bariatric procedure (principal); R10.9 Unspecified abdominal pain; K28.9 Gastrojejunal ulcer, unspecified as acute or chronic, without hemorrhage or perforation; K91.0 Vomiting following gastrointestinal surgery; E66.01 Morbid (severe) obesity due to excess calories; Z68.42 Body mass index [BMI] 45.0-49.9, adult; M79.7 Fibromyalgia; M47.816 Spondylosis without myelopathy or radiculopathy, lumbar region; R60.0 Localized edema; G43.909 Migraine, unspecified, not intractable, without status migrainosus; R06.00 Dyspnea, unspecified; R00.2 Palpitations; G47.33 Obstructive sleep apnea (adult) (pediatric); Z79.51 Long term (current) use of inhaled steroids; Z79.899 Other long term (current) drug therapy; Z99.89 Dependence on other enabling machines and devices
CPT/HCPCS: 43239; 82947; 88305; 88313; 88342; J2003; J2704

== ENCOUNTER → 2025-02-19 07:17 | Outpatient (BNV) | payer MEDICARE, MEDICAID, SELFPAY | PROVIDERS: Visit Provider Surgery | DX: R11.10 Vomiting, unspecified (principal); R10.9 Unspecified abdominal pain; K28.9 Gastrojejunal ulcer, unspecified as acute or chronic, without hemorrhage or perforation; Z98.84 Bariatric surgery status | CPT/HCPCS: 43239 ==

== ENCOUNTER 2025-02-23 13:48 | Outpatient (AMB) | payer MEDICARE, MEDICAID, SELFPAY ==
--- NOTE | 2025-02-23 13:04 | A.OFFVIS_ITS ---
VS Expanded 02/23/25 13:56 BP 141/72 H Blood Pressure Location Lt brachial Blood Pressure Position Sitting Pulse 55 Pulse Source Pulse Oximeter Temp 97.8 F Temperature Source Temporal Artery Scan Pulse Oximetry 98 Oxygen Delivery Method Room Air Height 5 ft 2 in Weight 214 lb 4 oz BMI 39.2 Body Fat % 41.2 Body Fat Mass 88.2 Fat Free Mass 126.2 Visceral Fat Rating 12.0 Body Water % 41.9 Body Water Mass 89.8 Muscle Mass/Score 119.8 Basal Metabolic Rate/Score 1,737 Intake Visit Reasons: (OV) PO LRYGBP *SEE COMMENTS* Child Care Development Specialist Required: Yes Child Care Development Specialist Services: Child Care Development Specialist Present Child Care Development Specialist Name: hospital cmi Allergies No Known Allergies [No Known Allergies*] Allergy (Verified 04/24/22 13:05) Medication List - Last Reconciled 02/23/25 by ANAND Gamez albuterol sulfate 2.5 mg (3 mL) inhalation Q6H PRN albuterol sulfate 90 mcg/actuation (ProAir HFA) 2 puffs inhalation QID PRN eagbfqpgmsi-fmwfczazq-fhhcgtdu 200-62.5-25 mcg (Trelegy Ellipta) 1 inh inhalation DAILY 30 days pantoprazole 40 mg PO DAILY sucralfate 10 mL PO BID HPI Comments Details: Patient is a 54-year-old female who comes to the office today to seek follow-up care. She has a history of gastric bypass done in [place] in November 2024. She has not followed up with any bariatric surgeon. She returned to the area here and was having difficulty with abdominal pain and vomiting some solid foods. She underwent an EGD by Dr. Newell on 02/19/2025 revealing normal postoperative anatomy except for small anastomotic ulcer. Recommendation was for PPI and sucralfate. She states that she originally was a patient in our program but when she had lost weight she was found to have right ovarian mass requiring surgery. After that she developed left sciatic pain also requiring surgery. After that she had family emergency in [place] and moved there. In [place] she was found to have diabetes and worsening obstructive sleep apnea and recommendation was for bariatric surgery. She ultimately underwent gastric bypass in [place] in November 2024. However her works in the area here in [place] and there was a lot of going back and forth. The travel became too expensive and she has moved back to the area now permanently. Meal plan: Premier protein RTD hb egg w gonzalez or tuna ham w cheese or another RTD shake apple drinking 64 oz water Exercise plan: walking outside 3 days per week, 30 min nothing more as she was waiting for approval from her bariatric surgeon [facility] Medical History Pleuritic chest pain Lower extremity edema Dyspnea Palpitation COVID-19 Bronchitis TOPHER on CPAP Asthma Lumbar spondylosis Fibromyalgia Chronic chest pain Chronic back pain Fibromyalgia Obstructive sleep apnea Morbid obesity with BMI of 45.0-49.9, adult Migraine headache Surgical History History of colonoscopy Other specified postprocedural states History of esophagogastroduodenoscopy (EGD) History of right oophorectomy History of History of partial hysterectomy History of neck surgery History of bilateral carpal tunnel release Family History Father Pacemaker Cardiovascular disease Diabetes mellitus Mother Lupus Brother Seizure disorder Cardiovascular disease Brother No problems noted. Brother No problems noted. Brother No problems noted. Sister No problems noted. Sister No problems noted. Son No problems noted. Daughter No problems noted. Daughter No problems noted. Social History Alcohol intake: never Patient Tobacco Use Status: Never used Tobacco e-Cigarette/Vaping Use: Never Used Physical Exam Const General: healthy appearing and no acute distress Resp Effort & Inspection: normal respiratory effort Auscultation: clear to auscultation bilaterally Cardio Rate: regular rate Rhythm: regular rhythm GI Auscultation: normal bowel sounds Extrem General: Yes normal to inspection Assessment & Plan Assessment & Plan (1) S/P gastric bypass: Code(s): Z98.84 - Bariatric surgery status Category: Surgical Plan: Patient will start a meal plan utilizing the premier protein ready to drink shake, based upon waking up at 6 and going to bed at 10: 7-830 half the carton 1030-12 half the carton 230-4 half the carton Meal at 05:30 with 4 forks protein and 4 forks vegetables 8-930 half the carton It was emphasized to drink very slowly over the 90 minute. Encouraged to drink an additional 2-3 water bottles daily 16 oz water bottles She was given information regarding joining the [facility] with a goal of burning 300 calories per day We will have her return to the office in approximately 4 weeks.
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
[2025-02-23 13:56] VITALS: BP 141/72; PULSE 55; TEMP 36.6; O2SAT 98; BMI 39.2
== END 2025-02-23 14:33 | disposition home or self-care (01) ==
PROVIDERS: Visit Provider Physician Assistant Surgical
DX: E66.9 Obesity, unspecified (principal); Z68.39 Body mass index [BMI] 39.0-39.9, adult; Z98.84 Bariatric surgery status
CPT/HCPCS: 99214

== ENCOUNTER → 2025-02-23 13:48 | Outpatient (BNVA) | payer MEDICARE, MEDICAID, SELFPAY | PROVIDERS: Visit Provider Physician Assistant Surgical | DX: E66.9 Obesity, unspecified (principal); Z98.84 Bariatric surgery status; Z68.39 Body mass index [BMI] 39.0-39.9, adult | CPT/HCPCS: 99212 ==

== ENCOUNTER 2025-03-21 11:22 | Outpatient (AMB) | payer OTHER, SELFPAY ==
--- NOTE | 2025-03-21 11:30 | MHC.OFFVISWM ---
VS Expanded 03/21/25 11:38 03/21/25 11:39 BP 137/72 Blood Pressure Location Rt brachial Blood Pressure Position Sitting Pulse 74 Pulse Source Pulse Oximeter Temp 97.8 F Temperature Source Temporal Artery Scan Pulse Oximetry 97 Oxygen Delivery Method Room Air Height 5 ft 2 in Weight 203 lb 12.8 oz BMI 37.3 37.3 Body Fat % 37.1 Body Fat Mass 75.6 Fat Free Mass 128.0 Visceral Fat Rating 11.0 Body Water % 44.6 Body Water Mass 90.8 Muscle Mass/Score 121.6 Basal Metabolic Rate/Score 1,741 Intake Visit Reasons: (OV) PO LRYGBP *SEE COMMENTS* Principle Industrial Hygienist Required: Yes Principle Industrial Hygienist Services: Principle Industrial Hygienist Present Principle Industrial Hygienist Name: hospital cmi Allergies No Known Allergies [No Known Allergies*] Allergy (Verified 03/21/25 11:33) Medication List - Last Reconciled 03/21/25 by ANAND Gamez albuterol sulfate 2.5 mg (3 mL) inhalation Q6H PRN albuterol sulfate 90 mcg/actuation (ProAir HFA) 2 puffs inhalation QID PRN gfpjrmtxjub-kprmymtvu-fhthqdeb 200-62.5-25 mcg (Trelegy Ellipta) 1 inh inhalation DAILY 30 days pantoprazole 40 mg PO DAILY sucralfate 10 mL PO BID HPI Comments Details: Patient is a 54-year-old female who comes to the office today for follow-up care. She has a history of gastric bypass done in [place] in November 2024. She had not followed up with any bariatric surgeon. She returned to the area here and was having difficulty with abdominal pain and vomiting some solid foods. She underwent an EGD by Dr. Newell on 02/19/2025 revealing normal postoperative anatomy except for small anastomotic ulcer. Recommendation was for PPI and sucralfate. She states that she originally was a patient in our program but when she had lost weight she was found to have a right ovarian mass requiring surgery. After that she developed left sciatic pain also requiring surgery. After that she had a family emergency in [place] and moved there. In [place] she was found to have diabetes and worsening obstructive sleep apnea and recommendation was for bariatric surgery. She ultimately underwent gastric bypass in [place] in November 2024. However her works in the area here in [place] and there was a lot of going back and forth. The travel became too expensive and she has moved back to the area now permanently. She was initially seen in the office on 02/23/2025 with a weight of 214.4 lb and a BMI of 39.2. Weight today is 203.8 lb with a BMI of 37.3. She has lost 10.6 lb or 4.9% total body weight loss since establishing care with our office. Taking PPI and sucralfate and no further abdominal pain. She is following the meal plan Meal plan: using Premier Protein RTD shake 7-830 half the carton 1030-12 half the carton 230-4 half the carton Meal at 5:30 with 4 forks protein and 4 forks vegetables 8-930 half the carton drinking 64 oz water Exercise plan: joining the [employer] treadmill at [facility], 3 days per week, 200 calories [facility] Medical History (Updated 02/19/25 @ 08:41 by Candelario Newell MD) Pleuritic chest pain Lower extremity edema Dyspnea Palpitation COVID-19 Bronchitis TOPHER on CPAP Asthma Lumbar spondylosis Fibromyalgia Chronic chest pain Chronic back pain Fibromyalgia Obstructive sleep apnea Morbid obesity with BMI of 45.0-49.9, adult Migraine headache Surgical History (Updated 03/21/25 @ 11:33 by Sharmila Saha CMA) S/P gastric bypass History of colonoscopy Other specified postprocedural states History of esophagogastroduodenoscopy (EGD) History of right oophorectomy History of History of partial hysterectomy History of neck surgery History of bilateral carpal tunnel release Family History Father Pacemaker Cardiovascular disease Diabetes mellitus Mother Lupus Brother Seizure disorder Cardiovascular disease Brother No problems noted. Brother No problems noted. Brother No problems noted. Sister No problems noted. Sister No problems noted. Son No problems noted. Daughter No problems noted. Daughter No problems noted. Social History Alcohol intake: never Patient Tobacco Use Status: Never used Tobacco e-Cigarette/Vaping Use: Never Used Physical Exam Vital Signs: Last Vital Signs Temp 97.8 F 03/21/25 11:38 Pulse 74 03/21/25 11:38 BP 137/72 03/21/25 11:38 Pulse Ox 97 03/21/25 11:38 Oxygen Delivery Method Room Air 03/21/25 11:38 BMI result Body Mass Index 37.3 Const General: healthy appearing and no acute distress Resp Effort & Inspection: normal respiratory effort Auscultation: clear to auscultation bilaterally Cardio Rate: regular rate Rhythm: regular rhythm GI Auscultation: normal bowel sounds Extrem General: Yes normal to inspection Assessment & Plan Assessment & Plan (1) S/P gastric bypass: Code(s): Z98.84 - Bariatric surgery status Category: Surgical Plan: Patient has shown significant improvement. She has no further abdominal pain. She is following the meal plan. She has lost 10.4 lb in 1 month. She is going to join the [employer] and exercise daily. She does have access to a treadmill at the apartment complex where she lives. She was encouraged to increase her exercise to daily, with a goal of burning 300 calories or more per day. We will have her return to the office in approximately 1 month.
[2025-03-21 11:38] VITALS: BP 137/72; PULSE 74; TEMP 36.6; O2SAT 97; BMI 37.3
--- NOTE | 2025-03-21 11:39 | MHC.OFFVISWM ---
VS Expanded 03/21/25 11:38 BP 137/72 Blood Pressure Location Rt brachial Blood Pressure Position Sitting Pulse 74 Pulse Source Pulse Oximeter Temp 97.8 F Temperature Source Temporal Artery Scan Pulse Oximetry 97 Oxygen Delivery Method Room Air Height 5 ft 2 in Weight 203 lb 12.8 oz BMI 37.3 Body Fat % 37.1 Body Fat Mass 75.6 Fat Free Mass 128.0 Visceral Fat Rating 11.0 Body Water % 44.6 Body Water Mass 90.8 Muscle Mass/Score 121.6 Basal Metabolic Rate/Score 1,741 Intake Visit Reasons: (OV) PO LRYGBP *SEE COMMENTS* Allergies No Known Allergies [No Known Allergies*] Allergy (Verified 03/21/25 11:33) PFSH Medical History (Updated 02/19/25 @ 08:41 by Candelario Newell MD) Pleuritic chest pain Lower extremity edema Dyspnea Palpitation COVID-19 Bronchitis TOPHER on CPAP Asthma Lumbar spondylosis Fibromyalgia Chronic chest pain Chronic back pain Fibromyalgia Obstructive sleep apnea Morbid obesity with BMI of 45.0-49.9, adult Migraine headache Surgical History (Updated 03/21/25 @ 11:33 by Sharmila Saha CMA) S/P gastric bypass History of colonoscopy Other specified postprocedural states History of esophagogastroduodenoscopy (EGD) History of right oophorectomy History of History of partial hysterectomy History of neck surgery History of bilateral carpal tunnel release Family History Father Pacemaker Cardiovascular disease Diabetes mellitus Mother Lupus Brother Seizure disorder Cardiovascular disease Brother No problems noted. Brother No problems noted. Brother No problems noted. Sister No problems noted. Sister No problems noted. Son No problems noted. Daughter No problems noted. Daughter No problems noted. Social History Alcohol intake: never Patient Tobacco Use Status: Never used Tobacco e-Cigarette/Vaping Use: Never Used Physical Exam Vital Signs: Last Vital Signs Temp 97.8 F 03/21/25 11:38 Pulse 74 03/21/25 11:38 BP 137/72 03/21/25 11:38 Pulse Ox 97 03/21/25 11:38 Oxygen Delivery Method Room Air 03/21/25 11:38 BMI result Body Mass Index 37.3 Quality Reporting (2019) Adult ([facility] 13812/09/68) Body Mass Index: 37.3
--- OUTSIDE RECORDS SUMMARY | 2025-03-21 12:20 | XMS_ITS | Encounter Summary ---
Author Organization [facility] Address [address] [place] [address] Care Team Providers Care Ems Helicopter Pilot Name Role Phone Zaina Sam DO Primary Care Pro vider Unavailable Chang Barnes MD Primary Care Provider Gloria Stout MD Primary Care Prov ider Encounter Details Date Type Department Care Team Description 01/30/2021 Gun Stock Checker Report Medical Records [address] [place] [id number] Theresa Mejia MD Social History Tobacco Use Types Packs/Day Years Used Date Smoking Tobacco: Never Smokeless Tobacco: Never Alcohol Use Standard Drinks/Week Comments No 0 (1 standard drink = 0.6 oz pur e alcohol) Sex Assigned at Date Recorded Not on file Job Start Date Occupation Industry Not on file Not on file Not on file documented as of this encounter Plan of Treatment Not on file documented as of this encounter Visit Diagnoses Not on filedocumented in this encounter Care Teams Ems Helicopter Pilot Relationship Specialty Start Date End Date Zaina Sam DO PCP - General Internal Medicine 06/03/19 05/01/21 Chang Barnes MD PCP - General Internal Medicine 05/02/21 05/13/22 Gloria Leiva MD [address] [place] [id number] PCP - General Internal Medicine 05/14/22 documented as of this encounter
== END 2025-03-21 11:52 | disposition home or self-care (01) ==
PROVIDERS: Visit Provider Physician Assistant Surgical
DX: E66.9 Obesity, unspecified (principal); Z68.37 Body mass index [BMI] 37.0-37.9, adult; Z98.84 Bariatric surgery status
CPT/HCPCS: 99213

== ENCOUNTER → 2025-03-21 11:22 | Outpatient (BNVA) | payer OTHER, SELFPAY | PROVIDERS: Visit Provider Physician Assistant Surgical | DX: E66.9 Obesity, unspecified (principal); Z98.84 Bariatric surgery status; Z68.37 Body mass index [BMI] 37.0-37.9, adult | CPT/HCPCS: 99212 ==

== ENCOUNTER 2025-05-14 11:25 | Outpatient (AMB) | payer OTHER, SELFPAY ==
--- NOTE | 2025-05-14 11:28 | A.OFFVIS_ITS ---
VS Expanded 05/14/25 11:36 BP 139/60 Blood Pressure Location Rt brachial Blood Pressure Position Sitting Pulse 65 Pulse Source Pulse Oximeter Temp 96.8 F Temperature Source Temporal Artery Scan Pulse Oximetry 98 Oxygen Delivery Method Room Air Height 5 ft 2 in Weight 192 lb 3.2 oz BMI 35.2 Body Fat % 36.4 Body Fat Mass 69.8 Fat Free Mass 122.2 Visceral Fat Rating 10.0 Body Water % 45.1 Body Water Mass 86.6 Muscle Mass/Score 116.0 Basal Metabolic Rate/Score 1,656 Intake Visit Reasons: (OV) PO LRYGBP *SEE COMMENTS* Independent Living Specialist Required: Yes Independent Living Specialist Name: hospital cmi Allergies No Known Allergies (No Known Allergies*) Allergy (Verified 05/14/25 11:33) Medication List - Last Reconciled 05/14/25 by ANAND Gamez albuterol sulfate 2.5 mg (3 mL) inhalation Q6H PRN albuterol sulfate 90 mcg/actuation (ProAir HFA) 2 puffs inhalation QID PRN rmifxmhelki-poqabkzoi-jvksmkbr 200-62.5-25 mcg (Trelegy Ellipta) 1 inh inhalation DAILY 30 days pantoprazole 40 mg PO DAILY sucralfate 10 mL PO BID HPI Comments Details: Patient is a 54-year-old female who comes to the office today for follow-up care. She has a history of gastric bypass done in [place] in November 2024. She had not followed up with any bariatric surgeon. She returned to the area here and was having difficulty with abdominal pain and vomiting some solid foods. She underwent an EGD by Dr. Newell on 02/19/2025 revealing normal postoperative anatomy except for small anastomotic ulcer. Recommendation was for PPI and sucralfate. She states that she originally was a patient in our program but when she had lost weight she was found to have a right ovarian mass requiring surgery. After that she developed left sciatic pain also requiring surgery. After that she had a family emergency in [place] and moved there. In [place] she was found to have diab etes and worsening obstructive sleep apnea and recommendation was for bariatric surgery. She ultimately underwent gastric bypass in [place] in November 2024. However her works in the area here in [place] and there was a lot of going back and forth. The travel became too expensive and she has moved back to the area now permanently. She was initially seen in the office on 02/23/2025 with a weight of 214.4 lb and a BMI of 39.2. Weight today is 192.2 lb with a BMI of 35.2. She has lost 22.2 lb or 10.3% total body weight loss since establishing care with our office. Taking PPI and sucralfate and no further abdominal pain. She is following the meal plan. C/O some loose stools over the last 4 days but getting better. She just got back from mission trip in [facility] Meal plan: using Premier Protein RTD shake 7-830 half the carton 1030-12 half the carton 230-4 half the carton Meal at 5:30 with 4 forks protein and 4 forks vegetables 8-930 half the carton drinking 64 oz water Exercise plan: joined the [employer] 3 days per week, 1/2 hour on treadmill and weights. 150 nilam PFSH Medical History Pleuritic chest pain Lower extremity edema Dyspnea Palpitation COVID-19 Bronchitis TOPHER on CPAP Asthma Lumbar spondylosis Fibromyalgia Chronic chest pain Chronic back pain Fibromyalgia Obstructive sleep apnea Morbid obesity with BMI of 45.0-49.9, adult Migraine headache Surgical History S/P gastric bypass History of colonoscopy Other specified postprocedural states History of esophagogastroduodenoscopy (EGD) History of right oophorectomy History of History of partial hysterectomy History of neck surgery History of bilateral carpal tunnel release Family History Father Pacemaker Cardiovascular disease Diabetes mellitus Mother Lupus Brother Seizure disorder Cardiovascular disease Brother No problems noted. Brother No problems noted. Brother No problems noted. Sister No problems noted. Sister No problems noted. Son No problems noted. Daughter No problems noted. Daughter No problems noted. Social History Alcohol intake: never Patient Tobacco Use Status: Never used Tobacco e-Cigarette/Vaping Use: Never Used Assessment & Plan Assessment & Plan (1) S/P gastric bypass: Code(s): Z98.84 - Bariatric surgery status Category: Surgical Plan: change meal plan slightly using premier protein rtd protein shake 7-830 half the carton (6 oz mixed with 2 oz unsweetened almond milk) 1030-12 4 oz of premier protein mixed with 4 oz unsweetened almond milk the carton 230-4 half the carton (6 oz mixed with 2 oz unsweetened almond milk) Meal at 5:30 with 4 forks protein and 4 forks vegetables 8-930 4 oz of premier protein mixed with 4 oz unsweetened almond milk the carton Encouraged to increase her cardio. Discussed goal of 2000 calories per week and she is only doing 450. She states that she will increase her cardio. Encouraged to communicate as needed. We will have her return to the office in approximately 2 months. She was given the meal plan written down for her so she would not forget
[2025-05-14 11:36] VITALS: BP 139/60; PULSE 65; TEMP 36; O2SAT 98; BMI 35.2
--- OUTSIDE RECORDS SUMMARY | 2025-05-14 12:41 | XMS_ITS | Clinical Summary ---
Author Organization [employer] Address [address] [facility] [address] [place] [address] Care Team Providers Care Entry Rep Name Role Phone Unavailable Primary Care Provider Unavailabl e Encounters Date Type Department Care Team Description 04/04/2025 Telephone [facility] [address] [place], [place] [id number] John Mcdonald MD new pt from Last 3 Months Social History Tobacco Use Types Packs/Day Years Used Date Smoking Tobacco: Never Assessed Comments Unknown Sex and Gender Information Value Date Recorded Sex Assigned at Not on file Legal Sex Female 3:16 PM EDT Gender Identity Not on file Sexual Orientation Not on file Plan of Treatment Health Maintenance Due Date Last Done Comments CT Colonography 1969 Colonoscopy 1969 Colorectal Cancer Screening 1969 Depression Screening 1969 FIT DNA/Cologuard 1969 FIT 1969 FOBT 1969 HIV Screening 1969 SDOH Screening 1969 Sigmoidoscopy 1969 Disability Screening 1969 Alcohol/Substance Use Screening 1981 Tobacco Screening 1981 Hepatitis C Screening 1987 DTaP/Tdap/Td Vaccines (1 - Tdap) 1988 Hepatitis B Vaccines (1 of 3 - 19+ 3-dose series) 1988 Pap Smear 1990 Cervical Cancer Screening 1999 HPV/Cotest 1999 Mammogram 2009 Pneumococcal Vaccine: 50+ Ye ars (1 of 1 - PCV) 2019 Zoster Vaccines (1 of 2) 2019 COVID-19 Vaccine ( - 2023-2 5 season) 2024 Influenza Vaccine (#1) 2025 RSV Patients and Pa tients Aged 60 years or older (1 - 1-dose 75+ series) 2044 HIB Vaccines Aged Out No longer eligi [...] patient's age to complete this topic Meningococcal Vaccine Aged Out No roslyn yazan eligible based on patient's age to complete this topic RSV under 20 months Aged Out No longe r eligible based on patient's age to complete this topic Rotavirus Vaccines Aged Out No longer eligible based on patient's age to complete this topic
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
== END 2025-05-14 11:55 | disposition home or self-care (01) ==
LOC: HO.HBS 11:25
PROVIDERS: Visit Provider Physician Assistant Surgical
DX: E66.9 Obesity, unspecified (principal); Z68.35 Body mass index [BMI] 35.0-35.9, adult; Z98.84 Bariatric surgery status
CPT/HCPCS: 99213; G2211

== ENCOUNTER → 2025-05-14 11:25 | Outpatient (BNVA) | payer OTHER, SELFPAY | PROVIDERS: Visit Provider Physician Assistant Surgical | DX: Z98.84 Bariatric surgery status (principal) | CPT/HCPCS: 99212 ==

== ENCOUNTER 2025-06-25 09:35 | Outpatient (AMB) | payer MEDICARE, SELFPAY ==
--- NOTE | 2025-06-25 09:29 | A.OFFVIS_ITS ---
VS Expanded 06/25/25 09:37 Height 5 ft 2 in Intake Visit Reasons: (TV) PO LRYGBP Belt Builder Helper Required: Yes Belt Builder Helper Name: Lulu Best Allergies No Known Allergies (No Known Allergies*) Allergy (Verified 05/14/25 11:33) Medication List - Last Reconciled 06/25/25 by ANAND Rodriguez albuterol sulfate 2.5 mg (3 mL) inhalation Q6H PRN albuterol sulfate 90 mcg/actuation (ProAir HFA) 2 puffs inhalation QID PRN tmlsnbxlxut-odpuqqkyx-eefpoyey 200-62.5-25 mcg (Trelegy Ellipta) 1 inh inhalation DAILY 30 days pantoprazole 40 mg PO DAILY sucralfate 10 mL PO BID HPI Comments Details: Patient is a 55-year-old female who has a history of gastric bypass done in [place] in November 2024. She had not followed up with any bariatric surgeon. She returned to the area here and was having difficulty with abdominal pain and vomiting some solid foods. She underwent an EGD by Dr. Newell on 02/19/2025 revealing normal postoperative anatomy except for small anastomotic ulcer. Recommendation was for PPI and sucralfate. She was initially seen in the office on 02/23/2025 with a weight of 214.4 lb and a BMI of 39.2. She is unsure of weight today as she does not have a scale at home, but feels that she has lost some weight due to the way her clothes are fitting. Taking PPI and sucralfate. She had one reoccurence of pain a little over a week ago which happened after her dinner meal, after her first bite of meat- felt like gas pain. She walked around a lot which helped relieve the pain. She is following the meal plan. Present meal plan includes: -given at last OV 7-830 half the carton (6 oz mixed with 2 oz unsweetened almond milk) 1030-12 4 oz of premier protein mixed with 4 oz unsweetened almond milk the carton 230-4 half the carton (6 oz mixed with 2 oz unsweetened almond milk) Meal at 5:30 with 4 forks protein and 4 forks vegetables 8-930 4 oz of premier protein mixed with 4 oz unsweetened almond milk the carton takes MVI, iron Exercise routine includes: walking- every day and tracks calories on watch- 650 calories she thinks but is unsure, weight training she plans to ask her brother how to better interpret her fitness tracker COUNTS INCLUDE [facility] BEDS AT THE [facility] Medical History Pleuritic chest pain Lower extremity edema Dyspnea Palpitation COVID-19 Bronchitis TOPHER on CPAP Asthma Lumbar spondylosis Fibromyalgia Chronic chest pain Chronic back pain Fibromyalgia Obstructive sleep apnea Morbid obesity with BMI of 45.0-49.9, adult Migraine headache Surgical History S/P gastric bypass History of colonoscopy Other specified postprocedural states History of esophagogastroduodenoscopy (EGD) History of right oophorectomy History of History of partial hysterectomy History of neck surgery History of bilateral carpal tunnel release Family History Father Pacemaker Cardiovascular disease Diabetes mellitus Mother Lupus Brother Seizure disorder Cardiovascular disease Brother No problems noted. Brother No problems noted. Brother No problems noted. Sister No problems noted. Sister No problems noted. Son No problems noted. Daughter No problems noted. Daughter No problems noted. Social History Alcohol intake: never Patient Tobacco Use Status: Never used Tobacco e-Cigarette/Vaping Use: Never Used Telehealth Telehealth Telehealth Platform: Telephone Location of provider rendering services: other Location of patient: address on file Patient Identification confirmed using: Name, : Yes Telehealth method: voice only Patient verbally consented to treatment: Yes Patient verbally consented to billing insurance company: Yes Patient informed of any privacy concerns related to visit: Yes Minutes spent on Phone/Video with Pt.: 20 Assessment & Plan Assessment & Plan (1) S/P gastric bypass: Code(s): Z98.84 - Bariatric surgery status Category: Surgical (2) Morbid obesity with BMI of 45.0-49.9, adult: Code(s): E66.01 - Morbid (severe) obesity due to excess calories; Z68.42 - Body mass index [BMI] 45.0-49.9, adult Category: Medical Plan Recommended that pt come in for weight check in office this week. Will order labs as she has not had any done with us. Recommended pt track calories and she will have her brother help her figure out her fitness tracker to better understand calorie burn. She will continue plan and monitor episodes of abdominal pain. She will text me if she has any additional episodes of pain as well. Sounds likely related to eating behavior but she does still have her g allbladder also. Will discuss with Dr Winters whether he would like to repeat endoscopy to monitor healing of ulcer. Next appt dependent on his decision. Orders: Orders Ferritin Today E66.01 - Morbid (severe) obesity due to excess calories, K28.9 - Gastrojejunal ulcer, unspecified as acute or chronic, without hemorrhage or perforation, Z68.42 - Body mass index [BMI] 45.0-49.9, adult, Z98.84 - Bariatric surgery status C Reactive Protein Today E66.01 - Morbid (severe) obesity due to excess calories, K28.9 - Gastrojejunal ulcer, unspecified as acute or chronic, without hemorrhage or perforation, Z68.42 - Body mass index [BMI] 45.0-49.9, adult, Z98.84 - Bariatric surgery status Vitamin A Today E66.01 - Morbid (severe) obesity due to excess calories, K28.9 - Gastrojejunal ulcer, unspecified as acute or chronic, without hemorrhage or perforation, Z68.42 - Body mass index [BMI] 45.0-49.9, adult, Z98.84 - Bariatric surgery status IRON PROFILE Today E66.01 - Morbid (severe) obesity due to excess calories, K 28.9 - Gastrojejunal ulcer, unspecified as acute or chronic, without hemorrhage or perforation, Z68.42 - Body mass index [BMI] 45.0-49.9, adult, Z98.84 - Bariatric surgery status Hemoglobin A1c Today E66.01 - Morbid (severe) obesity due to excess calories, K28.9 - Gastrojejunal ulcer, unspecified as acute or chronic, without hemorrhage or perforation, Z68.42 - Body mass index [BMI] 45.0-49.9, adult, Z98.84 - Bariatric surgery status Insulin Today E66.01 - Morbid (severe) obesity due to excess calories, K28.9 - Gastrojejunal ulcer, unspecified as acute or chronic, without hemorrhage or perforation, Z68.42 - Body mass index [BMI] 45.0-49.9, adult, Z98.84 - Bariatric surgery status Vitamin D 25-OH Total Today E66.01 - Morbid (severe) obesity due to excess calories, K28.9 - Gastrojejunal ulcer, unspecified as acute or chronic, without hemorrhage or perforation, Z68.42 - Body mass index [BMI] 45.0-49.9, adult, Z98.84 - Bariatric surgery status TSH reflex Free T4 Today E66.01 - Morbid (severe) obesity due to excess calories, K28.9 - Gastrojejunal ulcer, unspecified as acute or chronic, without hemorrhage or perforation, Z68.42 - Body mass index [BMI] 45.0-49.9, adult, Z98.84 - Bariatric surgery status Vitamin B1 Today E66.01 - Morbid (severe) obesity due to excess calories, K28.9 - Gastrojejunal ulcer, unspecified as acute or chronic, without hemorrhage or perforation, Z68.42 - Body mass index [BMI] 45.0-49.9, adult, Z98.84 - Bariatric surgery status Zinc Today E66.01 - Morbid (severe) obesity due to excess calories, K28.9 - Gastrojejunal ulcer, unspecified as acute or chronic, without hemorrhage or perforation, Z68.42 - Body mass index [BMI] 45.0-49.9, adult, Z98.84 - Bariatric surgery status Vitamin B12 and Folate Today E66.01 - Morbid (severe) obesity due to excess calories, K28.9 - Gastrojejunal ulcer, unspecified as acute or chronic, without hemorrhage or perforation, Z68.42 - Body mass index [BMI] 45.0-49.9, adult, Z98.84 - Bariatric surgery status Comprehensive Met. Panel Today E66.01 - Morbid (severe) obesity due to excess calories, K28.9 - Gastrojejunal ulcer, unspecified as acute or chronic, without hemorrhage or perforation, Z68.42 - Body mass index [BMI] 45.0-49.9, adult, Z98.84 - Bariatric surgery status Complete Blood Count Auto Diff Today E66.01 - Morbid (severe) obesity due to excess calories, K28.9 - Gastrojejunal ulcer, unspecified as acute or chronic, without hemorrhage or perforation, Z68.42 - Body mass index [BMI] 45.0-49.9, adult, Z98.84 - Bariatric surgery status Lipid Panel Today E66.01 - Morbid (severe) obesity due to excess calories, K28.9 - Gastrojejunal ulcer, unspecified as acute or chronic, without hemorrhage or perforation, Z68.42 - Body mass index [BMI] 45.0-49.9, adult, Z98.84 - Bariatric surgery status Medications: New sucralfate 10 mL PO BID 414 mL 3RF
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
--- OUTSIDE RECORDS SUMMARY | 2025-06-25 10:53 | XMS_ITS | Clinical Summary ---
Author Organization [employer] Address [address] [facility] [address] [place] [address] Care Team Providers Care Supervisor [employer]erglass Boat Assembly Name Role Phone Unavailable Primary Care Provider Unavailabl e Encounters Date Type Department Care Team Description 04/04/2025 Telephone [facility] [address] [place] [address] John Mcdonald MD new pt from Last 3 Months Social History Tobacco Use Types Packs/Day Years Used Date Smoking Tobacco: Never Assessed Comments Unknown Sex and Gender Information Value Date Recorded Sex Assigned at Not on file Legal Sex Female 3:16 PM EDT Gender Identity Not on file Sexual Orientation Not on file Plan of Treatment Upcoming Encounters Date Type Department Care Team (Late st Contact Info) Description 08/31/2025 9:00 AM EST Office Visit [facility] [address] [place] [address] Lisa Dejesus, AUDRA [address] [place] [address] Health Maintenance Due Date Last Done Comments [...] COVID-19 Vaccine ( - 2023-2 5 season) 2025 Influenza Vaccine (#1) 2025 RSV Patients and [...]
== END 2025-06-25 10:01 | disposition home or self-care (01) ==
LOC: HO.HBS 09:35
PROVIDERS: PCP Registered Nurse; Visit Provider Physician Assistant Surgical
DX: E66.01 Morbid (severe) obesity due to excess calories (principal); Z68.42 Body mass index [BMI] 45.0-49.9, adult; Z98.84 Bariatric surgery status
CPT/HCPCS: 99214; G2211

== ENCOUNTER 2025-06-27 12:34 | Outpatient (REF) | payer MEDICARE, SELFPAY ==
[2025-06-27 12:49] LABS: MANUAL DIFF FLAG NO
[2025-06-27 14:04] LABS: Hematocrit 39.1 % (37.0-47.0); Hemoglobin 12.9 g/dl (12.0-16.0); Imm Gran Abs Auto 0.01 X10*3/uL (0.00-0.03); Imm Gran Pct Auto 0.2 % (0.0-0.4); Lymphocytes Absolute Auto 2.3 X10*3/uL (1.2-4.9); Mean Corpuscular HGB Conc 33.0 g/dl (31.0-35.0); Mean Corpuscular Hemoglobin 29.3 pg (27.0-33.0); Mean Corpuscular Volume 88.7 fL (80.0-98.0); NRBC Abs Auto 0.000 X10*3/uL (0.0-0.012); NRBC Pct Auto 0.0 /100WBC (0.0-0.2); Platelet Count 223 X10*3/uL (160-400); Red Blood Count 4.41 X10*6/uL (4.20-5.50); White Blood Count 5.3 X10*3/uL (4.8-10.8)
[2025-06-27 14:09] LABS: Hemoglobin A1C 114.3078 umol/L; Total Hemoglobin (HGBA1C) 3461.7488 umol/L
[2025-06-27 14:48] LABS: Alanine Aminotransferase 24 U/L (0-31); Albumin Level 4.5 g/dL (3.5-5.0); Alkaline Phosphatase 99 U/L (39-117); Anion Gap 12 (12-20); Aspartate Amino Transferase 27 U/L (5-31); Blood Urea Nitrogen 8 mg/dL (9-16); Calcium 9.6 mg/dL (8.4-10.2); Carbon Dioxide 30 mmol/L (22-29); Chloride 105 mmol/L (96-108); Cholesterol 167 mg/dL (<200); Estimated Glomerular Filt Rate > 60; Ferritin 205 ng/mL (10-250); HDL Cholesterol 51 mg/dL (>40); Iron 108 mcg/dL (30-160); Percent Iron Saturation 36 % (15-50); Potassium 3.7 mmol/L (3.3-5.1); Sodium 143 mmol/L (135-145); Total Iron Binding Capacity 298 mcg/dL (228-428); Total Protein 7.7 g/dL (6.5-8.0); Triglycerides 78 mg/dL (<150); Unsaturated Iron Binding 190 ug/dL
[2025-06-27 15:03] LABS: Folate 4.8 ng/mL (> or = 4.0); Vitamin B12 364 pg/mL (200-900)
--- OUTSIDE RECORDS SUMMARY | 2025-06-27 15:30 | XMS_ITS | Encounter Summary ---
Author Organization [employer] [facility] Address [address] [place] [address] 7 [place] [address] Care Team Providers Care Barrel Inspector Tight Name Role Phone Unavailable Primary Care Provider Unavailabl e Encounter Details Date Type Department Care Team (Late st Contact Info) Description 06/27/2025 Orders Only GENERIC EXTERNAL DATA DEPARTMENT Provider, Generic External Data Social History Tobacco Use Types Packs/Day Years Used Date Smoking Tobacco: Never Assessed Comments Unknown Sex and Gender Information Value Date Recorded Sex Assigned at Not on file Legal Sex Female 3:16 PM EDT Gender Identity Not on file Sexual Orientation Not on file documented as of this encounter Plan of Treatment Upcoming Encounters Date Type Department Care Team (Late Contact Info) Description 08/31/2025 9:00 AM EST Office Visit [facility] [address] [place] [address] Lisa Dejesus, TRENCH PIPE LAYER HELPER [address] [place] [address] documented as of this encounter Procedures Procedure Name Priority Date/Time Associated Diagnosis Comments CBC WITH AUTO DIFFERENTIAL Routine 06/27/2025 12:46 PM EDT documented in this encounter Results * (ABNORMAL) CBC auto differential (06/27/2025 12:46 PM EDT) White Blood Count 5.3 4.8 - 10.8 X10*3/uL [facility] Red Blood Count 4.41 4.20 - 5.50 X10*6/uL [facility] Hemoglobin 12.9 12.0 - 16.0 g/dl [facility] Hematocrit 39.1 37.0 - 47.0 % [facility] Mean Corpuscular Volume 88.7 80.0 - 98.0 fL [facility] Mean Corpuscular Hemoglobin 29.3 27.0 - 33.0 pg [facility] Mean Corpuscular HGB Conc 33.0 31.0 - 35.0 g/dl [facility] Red Cell Distribution Width 13.4 11.0 - 16.0 % [facility] Platelet Count 223 160 - 400 X10*3/uL [facility] Mean Platelet Volume 11.1 9.4 - 12.3 fL [facility] Neutrophils Percent Auto 49.7 45 - 73 % [facility] Imm Gran Pct Auto 0.2 0.0 - 0.4 % [facility] Lymphocytes Percent Auto 42.9(H) 20 - 40 % [facility] Monocytes Percent Auto 5.6 2 - 11 % [facility] Eosinophils Percent Auto 0.9 0 - 4 % [facility] Basophils Percent Auto 0.7 0 - 2 % [facility] NRBC Pct Auto 0.0 0.0 - 0.2 /100WBC [facility] Neutrophils Absolute Auto 2.7 2.0 - 8.3 x10*3/uL [facility] Imm Gran Abs Auto 0.01 0.00 - 0.03 X10*3/uL [facility] Lymphocytes Absolute Auto 2.3 1.2 - 4.9 X10*3/uL [facility] Monocytes Absolute Auto 0.3 0.1 - 1.2 X10*3/uL [facility] Eosinophils Absolute Auto 0.1 0.0 - 0.4 X10*3/uL [facility] Basophils Absolute Auto 0.0 0.0 - 0.2 X10*3/uL [facility] NRBC Abs Auto 0.000 0.0 - 0.012 X10*3/uL [facility] 06/27/2025 12:4 6 PM EDT 06/27/2025 12:46 PM EDT us Generic External Data Provider LAB BLOOD ORDERAB LES Final Result [facility] [address] [place] [phone] documented in this encounter Visit Diagnoses Not on filedocumented in this encounter
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
--- OUTSIDE RECORDS SUMMARY | 2025-06-27 15:31 | XMS_ITS | Clinical Summary ---
Author Organization [employer] Address [address] [facility] 7 [place] [address] Care Team Providers Care Diet Kitchen Cook Name Role Phone Unavailable Primary Care Provider Unavailabl e Encounters Date Type Department Care Team Description 06/27/2025 Orders Only GENERIC EXTERNAL DATA DEPARTMENT Provider, Generic External Data 04/04/[address] [facility] [address] [place] [address] John Mcdonald MD new pt from Last [...] Description 08/31/2025 9:00 AM EST Office Visit [facility] [address] [place] [address] Lisa Dejesus FNP [address] [place] [address] Health Maintenance Due Date Last Done Comments [...] Vaccines (1 of 2) 2019 COVID-19 Vaccine (1 - 2023-2 5 season) 2025 Influenza Vaccine [...] AUTO DIFFERENTIAL Routine 06/27/2025 12:46 PM EDT from Last 3 Months Results * (ABNORMAL) CBC auto differential (06/27/2025 12:46 PM EDT) White Blood Count 5.3 4.8 - 10.8 X10*3/uL [facility] Red Blood Count 4.41 4.20 - 5.50 X10*6/uL [facility] Hemoglobin 12.9 12.0 - 16.0 g/dl [facility] Hematocrit 39.1 37.0 - 47.0 % [facility] Mean Corpuscular Volume 88.7 80.0 - 98.0 fL [facility] Mean Corpuscular Hemoglobin 29.3 27.0 - 33.0 pg [facility] Mean Corpuscular HGB Conc 33.0 31.0 - 35.0 g/dl [facility] Red Cell Distribution Width 13.4 11.0 - 16.0 % [facility] Platelet Count 223 160 - 400 X10*3/uL [facility] Mean Platelet Volume 11.1 9.4 - 12.3 fL [facility] Neutrophils Percent Auto 49.7 45 - 73 % [facility] Imm Gran Pct Auto 0.2 0.0 - 0.4 % [facility] Lymphocytes Percent Auto 42.9(H) 20 - 40 % [facility] Monocytes Percent Auto 5.6 2 - 11 % [facility] Eosinophils Percent Auto 0.9 0 - 4 % [facility] Basophils Percent Auto 0.7 0 - 2 % [facility] NRBC Pct Auto 0.0 0.0 - 0.2 /100WBC [facility] Neutrophils Absolute Auto 2.7 2.0 - 8.3 x10*3/uL [facility] Imm Gran Abs Auto 0.01 0.00 - 0.03 X10*3/uL [facility] Lymphocytes Absolute Auto 2.3 1.2 - 4.9 X10*3/uL [facility] Monocytes Absolute Auto 0.3 0.1 - 1.2 X10*3/uL [facility] Eosinophils Absolute Auto 0.1 0.0 - 0.4 X10*3/uL [facility] Basophils Absolute Auto 0.0 0.0 - 0.2 X10*3/uL [facility] NRBC Abs Auto 0.000 0.0 - 0.012 X10*3/uL [facility] 06/27/2025 12:4 6 PM EDT 06/27/2025 12:46 PM EDT us Generic External Data Provider LAB BLOOD ORDERAB LES Final Result [facility] [address] [place] [phone] from Last 3 Months
== END 2025-06-27 12:35 | disposition home or self-care (01) ==
LOC: HO.LAB 12:34
PROVIDERS: PCP Registered Nurse; Visit Provider Physician Assistant Surgical
DX: K28.9 Gastrojejunal ulcer, unspecified as acute or chronic, without hemorrhage or perforation (principal); E66.01 Morbid (severe) obesity due to excess calories; Z98.84 Bariatric surgery status; Z68.42 Body mass index [BMI] 45.0-49.9, adult; Z13.1 Encounter for screening for diabetes mellitus; Z13.29 Encounter for screening for other suspected endocrine disorder
CPT/HCPCS: 36415; 80053; 80061; 82306; 82607; 82728; 82746; 83036; 83525; 83540; 84425; 84443; 84590; 84630; 85025; 86140

== ENCOUNTER 2025-07-23 10:54 | Day surgery (SDC) | payer MEDICARE, SELFPAY ==
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
--- OUTSIDE RECORDS SUMMARY | 2025-06-28 11:04 | XMS_ITS | Encounter Summary ---
Author Organization [facility] Address [address] [place] [address] 7 [place] [address] Care Team Providers Care Bass Fisher Name Role Phone Unavailable Primary Care Provider [...] Description 08/31/2025 9:00 AM EST Office Visit [facility] MED [facility] PEDS [address] [place] [address] BrandonenLisa, TURPENTINE DISTILLER [address] [place] [address] documented as of this encounter Procedures Procedure Name Priority Date/Time Associated Diagnosis Comments VITAMIN D,25-OH,TOTAL,IA Routine 06/27/2025 12:46 PM EDT VITAMIN B12/FOLATE, SERUM PANEL Routine 06/27/2025 12:46 PM EDT TSH W/REFLEX TO FT4 Routine 06/27/2025 1 2:46 PM EDT CBC WITH AUTO DIFFERENTIAL Routine 06/27/2025 12:46 PM EDT IRON AND TOTAL IRON BINDING CAPACITY Routine 06/27/2025 12:46 PM EDT INSULIN Routine 06/27/2025 12:46 PM EDT C-REACTIVE PROTEIN Routine 06/27/2025 12 :46 PM EDT HEMOGLOBIN A1C Routine 06/27/2025 12:46 PM EDT FERRITIN Routine 06/27/2025 12:46 PM EDT LIPID PANEL, STANDARD Routine 06/27/2025 12:46 PM EDT COMPREHENSIVE METABOLIC PANEL Routine 06/27/2025 12:46 PM EDT documented in this encounter Results * Insulin (06/27/2025 12:46 PM EDT) Insulin 7 2 - 29 uU/mL [facility] Comment:This test was perfor med using the [employer] chemiluminescentmethod. Values obtained from different assay methods cannot beused interchangeably. This insulin assay shows a possiblecross-reactivity with antibodies generated against insulin(immunoreactive insulin and some patients treated withbovine or porcine insulin). Insulin levels may be measuredlower in patients with insulin autoimmune syndrome orfamilial high pro-insulinemia. 06/27/2025 12:4 6 PM EDT 06/27/2025 12:46 PM EDT us Generic External Data Provider LAB BLOOD ORDERAB LES Final Result Performing Organization Address [facility]/ZIP Co de Phone Number [facility] [address] [place] [phone] * TSH with Reflex to Free T4 (06/27/2025 12:46 PM EDT) TSH reflex Free T4 2.85 0.32 - 4.0 uIU/mL [facility] 06/27/2025 12:4 6 PM EDT 06/27/2025 12:46 PM EDT us Generic External Data Provider LAB BLOOD ORDERAB LES Final Result Performing Organization Address City/[facility]/ZIP Co de Phone Number [facility] [address] [place] [phone] * (ABNORMAL) Vitamin D, 25-Hydroxy, Total, Immunoassay (06/27/2025 12:46 PM EDT) Vitamin D 25-OH Total 25.3(L) >30 ng/mL [facility] Comment: Health Based Reference Values*< 20 ng/mL Dudppzoua89-70 ng/mL Insufficient> 30 ng/mL Sufficient*Timothy ALVARES. N Engl J Med. 2007;357:266-280There is no well-established upper level of normal vitamin Dlevels. Some laboratories use 50 ng/mL as an upper limit ofnormal. However, toxicity is patient-dependent and may occurat any level. Careful correlation with the patient'spresentation is necessary and, if there is concern forvitamin D toxicity, treatment should be consideredirrespective of the serum level.Care must be taken in interpreting Vitamin D results fromdifferent laboratories and methodologies. Published datademonstrated that results from patients undergoinghemodialysis may show a negative bias when tested withvarious automated 25-OH vitamin D assays when compared toLC-MS/MS.When testing samples from patients whose predominant form ofVitamin D is Vitamin D2, such as patients receiving VitaminD2 supplementation, results that are subtherapeutic shouldbe confirmed with another method such as LC-MS/MS. 06/27/2025 12:4 6 PM EDT 06/27/2025 12:46 PM EDT us Generic External Data Provider LAB BLOOD ORDERAB LES Final Result [facility] [address] [place] [phone] * (ABNORMAL) Lipid Panel, Standard (06/27/2025 12:46 PM EDT) Triglycerides 78 <150 mg/dL [facility] Comment:Desirable Triglyceri de: less than 150 mg/dLBorderline High Triglyceride 150-199 mg/dLHigh Triglyceride: 200-499 mg/dLVery High Triglyceride: greater than or equal to 5OO mg/dL Cholesterol 167 <200 mg/dL [facility] Comment:Desirable Cholestero l: less than 200 mg/dLBorderline High Cholesterol: 200-239 mg/dLHigh Cholesterol: greater than 239 mg/dL LDL Cholesterol Calculated 101(H) <100 mg/dL [facility] Comment:Desirable LDL: less than 100 mg/dLNear Optimal/Above Optimal LDL: 110- 129 mg/dLBorderline High LDL: 130-159 mg/dLHigh LDL: 160-189 mg/dLVery High LDL: greater than or equal to 190 mg/dL HDL Cholesterol 51 >40 mg/dL [facility] Comment:Desirable HDL: great er than 40 mg/dL Note: This HDL assay may give artificially low results in patients with liver disease. 06/27/2025 12:4 6 PM EDT 06/27/2025 12:46 PM EDT us Generic External Data Provider LAB BLOOD ORDERAB LES Final Result Performing Organization Address City/[facility]/ZIP Co de Phone Number [facility] [address] [place] [phone] * (ABNORMAL) C-reactive Protein (06/27/2025 12:46 PM EDT) C Reactive Protein 0.85(H) < or = 0.50 mg/dL [facility] 06/27/2025 12:4 6 PM EDT 06/27/2025 12:46 PM EDT us Generic External Data Provider LAB BLOOD ORDERAB LES Final Result Performing Organization Address City/[facility]/ZIP Co de Phone Number [facility] [address] [place] [phone] * Ferritin (06/27/2025 12:46 PM EDT) Ferritin 205 10 - 250 ng/mL [facility] 06/27/2025 12:4 6 PM EDT 06/27/2025 12:46 PM EDT us Generic External Data Provider LAB BLOOD ORDERAB LES Final Result Performing Organization Address [facility] Co de Phone Number [facility] [address] [place] [phone] * Iron And Total Iron Binding Capacity (06/27/2025 12:46 PM EDT) Iron 108 30 - 160 mcg/dL [facility] Total Iron Binding Capacity 298 228 - 428 mcg/dL [facility] Percent Iron Saturation 36 15 - 50 % [facility] Unsaturated Iron Binding 190 ug/dL [facility] 06/27/2025 12:4 6 PM EDT 06/27/2025 12:46 PM EDT Generic External Data Provider LAB BLOOD ORDERAB LES Final Result Performing Organization Address [facility] de Phone Number [facility] [address] [place] [phone] * (ABNORMAL) Comprehensive Metabolic Panel (06/27/2025 12:46 PM EDT) Pathologist [facility] Sodium 143 135 - 145 mmol/L [facility] Potassium 3.7 3.3 - 5.1 mmol/L [facility] Chloride 105 96 - 108 mmol/L [facility] Carbon Dioxide 30(H) 22 - 29 mmol/L [facility] Anion Gap 12 12 - 20 [facility] Urea Nitrogen (BUN) 8(L) 9 - 16 mg/dL [facility] Creatinine, Serum 0.54 0.5 - 1.4 mg/dL [facility] Estimated Glomerular Filt Rate >60 [facility] Comment:Chronic Kidney Disea se: Estimated GFR < 60 mL/min/[id number] Kidney Disease: Estimated GFR < 15 mL/min/1.73m2 Glucose 76 60 - 115 mg/dL [facility] Calcium 9.6 8.4 - 10.2 mg/dL [facility] Bilirubin, Total 1.4(H) 0.0 - 1.0 mg/dL [facility] Aspartate Amino Transferase 27 5 - 31 U/L [facility] Alanine Aminotransferase 24 0 - 31 U/L [facility] Total Protein 7.7 6.5 - 8.0 g/dL [facility] Albumin Level 4.5 3.5 - 5.0 g/dL [facility] Alkaline Phosphatase 99 39 - 117 U/L [facility] 06/27/2025 12:4 6 PM EDT 06/27/2025 12:46 PM EDT us Generic External Data Provider LAB BLOOD ORDERAB LES Final Result Performing Organization Address [facility] Co de Phone Number [facility] [address] [place] [address] [phone] * Hemoglobin A1c (06/27/2025 12:46 PM EDT) Hemoglobin A1c 5.2 <6.0 % [facility] Comment:Hemoglobin A1C Refer ence Range Adults: 4.8 - 6.0 % Non diabetic: < 6.0 % Goal: < 7.0 %Additional Action Suggested: > 8.0 %Note: Hemoglobin A1c results are invalid for patients with abnormal amounts of HbF. Blood transfusions may impact the HbA1c concentration in the patient sample. Estimated Average Glucose 103 mg/dL [facility] Comment:eAG = Estimated ave rage glucose which is %A1C expressed asaverage glucose, using the formula of the I9P-BzzujtvKlzwytq Glucose study (ADAG), Diabetes Care, Vol.31,#8,May. 2007 06/27/2025 12:4 6 PM EDT 06/27/2025 12:46 PM EDT us Generic External Data Provider LAB BLOOD ORDERAB LES Final Result Performing Organization Address [facility] Co de Phone Number [facility] [address] [place] [phone] * Vitamin B12 (Cobalamin) and Folate Panel, Serum (06/27/2025 12:46 PM EDT) Vitamin B12 364 200 - 900 pg/mL [facility] Comment:NORMAL 200-900 PG/ML INDETERMINATE 160-199 PG/ML DEFICIENT < 160 PG/ML Folate 4.8 > or = 4.0 ng/mL [facility] Comment:Reference Values:> o r = 4.0 ng/mL< 4.0 ng/mL suggests folate deficiency Methotrexate, aminopterin and folinic acid(leucovorin) are chemotherapeutic agents whose molecularstructures are similar to folate; therefore, the Architectfolate assay cannot be used for patients using these drugs. 06/27/2025 12:4 6 PM EDT 06/27/2025 12:46 PM EDT us Generic External Data Provider LAB BLOOD ORDERAB LES Final Result [facility] [address] [place] [address] [phone] * (ABNORMAL) CBC auto differential (06/27/2025 12:46 PM EDT) Pathologist [facility] White Blood Count 5.3 4.8 - 10.8 X10*3/uL [facility] Red Blood Count 4.41 4.20 - 5.50 X10*6/uL [facility] Hemoglobin 12.9 12.0 - 16.0 g/dl [facility] Hematocrit 39.1 37.0 - 47.0 % [facility] Mean Corpuscular Volume 88.7 80.0 - 98.0 fL [facility] Mean Corpuscular Hemoglobin 29.3 27.0 - 33.0 pg [facility] Mean Corpuscular HGB Conc 33.0 31.0 - 35.0 g/dl [facility] Red Cell Distribution Width 13.4 11.0 - 16.0 % [facility] Platelet Count 223 160 - 400 X10*3/uL [facility] Mean Platelet Volume 11.1 9.4 - 12.3 fL [facility] Neutrophils Percent Auto 49.7 45 - 73 % [facility] Imm Gran Pct Auto 0.2 0.0 - 0.4 % [facility] Lymphocytes Percent Auto 42.9(H) 20 - 40 % [facility] Monocytes Percent Auto 5.6 2 - 11 % [facility] Eosinophils Percent Auto 0.9 0 - 4 % [facility] Basophils Percent Auto 0.7 0 - 2 % [facility] NRBC Pct Auto 0.0 0.0 - 0.2 /100WBC [facility] Neutrophils Absolute Auto 2.7 2.0 - 8.3 x10*3/uL [facility] Imm Gran Abs Auto 0.01 0.00 - 0.03 X10*3/uL [facility] Lymphocytes Absolute Auto 2.3 1.2 - 4.9 X10*3/uL [facility] Monocytes Absolute Auto 0.3 0.1 - 1.2 X10*3/uL [facility] Eosinophils Absolute Auto 0.1 0.0 - 0.4 X10*3/uL [facility] Basophils Absolute Auto 0.0 0.0 - 0.2 X10*3/uL [facility] NRBC Abs Auto 0.000 0.0 - 0.012 X10*3/uL [facility] 06/27/2025 12:4 6 PM EDT 06/27/2025 12:46 PM EDT us Generic External Data Provider LAB BLOOD ORDERAB LES Final Result [facility] [address] [place] [phone] [phone] documented in this encounter Visit Diagnoses Not on filedocumented in this encounter
--- OUTSIDE RECORDS SUMMARY | 2025-06-28 11:04 | XMS_ITS | Clinical Summary ---
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 Name Role Phone Unavailable Primary Care Provider Unavailabl e Encounters Date Type Department Care Team Description 06/27/2025 Orders Only GENERIC EXTERNAL DATA DEPARTMENT Provider, Generic External Data 04/04/2025 Telephone [facility] MEDICINE [address] [place] [phone] John Mcdonald MD new pt from Last [...] Description 08/31/2025 9:00 AM EST Office Visit [facility] CHC MED & PEDS [address] [place] [address] Lisa Dejesus FNP [address] [place] [address] Health Maintenance Due Date Last Done Comments [...] Procedure Name Priority Date/Time Associated Diagnosis Comments INSULIN Routine 06/27/2025 12:46 PM EDT TSH W/REFLEX TO FT4 Routine 06/27/2025 1 2:46 PM EDT VITAMIN D,25-OH,TOTAL,IA Routine 06/27/2025 12:46 PM EDT LIPID PANEL, STANDARD Routine 06/27/2025 12:46 PM EDT C-REACTIVE PROTEIN Routine 06/27/2025 12 :46 PM EDT FERRITIN Routine 06/27/2025 12:46 PM EDT IRON AND TOTAL IRON BINDING CAPACITY Routine 06/27/2025 12:46 PM EDT COMPREHENSIVE METABOLIC PANEL Routine 06/27/2025 12:46 PM EDT HEMOGLOBIN A1C Routine 06/27/2025 12:46 PM EDT VITAMIN B12/FOLATE, SERUM PANEL Routine 06/27/2025 12:46 PM EDT CBC WITH AUTO DIFFERENTIAL Routine 06/27/2025 12:46 PM EDT from Last 3 Months Results * (ABNORMAL) Vitamin D, 25-Hydroxy, Total, Immunoassay (06/27/2025 12:46 PM EDT) Pathologist [facility] Vitamin D 25-OH Total 25.3(L) >30 ng/mL [facility] Comment: Health Based Reference Values*< 20 ng/mL Wrbnbocet05-27 ng/mL Insufficient> 30 ng/mL Sufficient*Timothy ALVARES. N [...] Provider LAB BLOOD ORDERAB LES Final Result [facility] [address] [place] [address] [phone] * Vitamin B12 (Cobalamin) and Folate Panel, Serum (06/27/2025 12:46 PM EDT) Pathologist [facility] Vitamin B12 364 200 - 900 pg/mL [facility] Comment:NORMAL 200-900 PG/ML INDETERMINATE 160-199 PG/ML DEFICIENT < 160 PG/ML Folate 4.8 > or = 4.0 ng/mL [facility] Comment:Reference Values:> o r = 4.0 ng/mL< 4.0 ng/mL suggests folate deficiency Methotrexate, aminopterin and folinic acid(leucovorin) are chemotherapeutic agents whose molecularstructures are similar to folate; therefore, the Architectfolate assay cannot be used for patients using these drugs. 06/27/2025 12:4 6 PM EDT 06/27/2025 12:46 PM EDT Generic External Data Provider LAB BLOOD ORDERAB LES Final Result Performing Organization Address [facility]/ZIP Co de Phone Number [facility] [address] [place] [address] [phone] * TSH with Reflex to Free T4 (06/27/2025 12:46 PM EDT) [facility] TSH reflex Free T4 2.85 0.32 - 4.0 uIU/mL [facility] 06/27/2025 12:4 6 PM EDT 06/27/2025 12:46 PM EDT Generic External Data Provider LAB BLOOD ORDERAB LES Final Result Performing Organization Address City/[facility]/ZIP Co de Phone Number [facility] [address] [place] [address] [phone] * (ABNORMAL) CBC auto differential (06/27/2025 12:46 PM EDT) [facility] White Blood Count 5.3 4.8 - 10.8 X10*3/uL [facility] Red Blood Count 4.41 4.20 - 5.50 X10*6/uL [facility] Hemoglobin 12.9 12.0 - 16.0 g/dl [facility] Hematocrit 39.1 37.0 - 47.0 % [facility] Mean Corpuscular Volume 88.7 80.0 - 98.0 fL [facility] Mean Corpuscular Hemoglobin 29.3 27.0 - 33.0 pg [facility] Mean Corpuscular HGB Conc 33.0 31.0 - 35.0 g/dl [facility] Red Cell Distribution Width 13.4 11.0 - 16.0 % [facility] Platelet Count 223 160 - 400 X10*3/uL [facility] Mean Platelet Volume 11.1 9.4 - 12.3 fL [facility] Neutrophils Percent Auto 49.7 45 - 73 % [facility] Imm Gran Pct Auto 0.2 0.0 - 0.4 % [facility] Lymphocytes Percent Auto 42.9(H) 20 - 40 % [facility] Monocytes Percent Auto 5.6 2 - 11 % [facility] Eosinophils Percent Auto 0.9 0 - 4 % [facility] Basophils Percent Auto 0.7 0 - 2 % [facility] NRBC Pct Auto 0.0 0.0 - 0.2 /100WBC [facility] Neutrophils Absolute Auto 2.7 2.0 - 8.3 x10*3/uL [facility] Imm Gran Abs Auto 0.01 0.00 - 0.03 X10*3/uL [facility] Lymphocytes Absolute Auto 2.3 1.2 - 4.9 X10*3/uL [facility] Monocytes Absolute Auto 0.3 0.1 - 1.2 X10*3/uL [facility] Eosinophils Absolute Auto 0.1 0.0 - 0.4 X10*3/uL [facility] Basophils Absolute Auto 0.0 0.0 - 0.2 X10*3/uL [facility] NRBC Abs Auto 0.000 0.0 - 0.012 X10*3/uL [facility] 06/27/2025 12:4 6 PM EDT 06/27/2025 12:46 PM EDT Generic External Data Provider LAB BLOOD ORDERAB LES Final Result Performing Organization Address [facility]/ZIP Co de Phone Number [facility] [address] [place] [address] [phone] * Iron And Total Iron Binding Capacity (06/27/2025 12:46 PM EDT) Iron 108 30 - 160 mcg/dL [facility] Total Iron Binding Capacity 298 228 - 428 mcg/dL [facility] Percent Iron Saturation 36 15 - 50 % [facility] Unsaturated Iron Binding 190 ug/dL [facility] 06/27/2025 12:4 6 PM EDT 06/27/2025 12:46 PM EDT Generic External Data Provider LAB BLOOD ORDERAB LES Final Result Performing Organization Address [facility] Phone Number [facility] [address] [place] [address] [phone] * Insulin (06/27/2025 12:46 PM EDT) Insulin 7 2 - 29 uU/mL [facility] Comment:This test was perfor med using the [employer] chemiluminescentmethod. Values obtained from different assay methods [...] ORDERAB LES Final Result Performing Organization Address [facility] Co de Phone Number [facility] [address] [place] [address] [phone] * (ABNORMAL) C-reactive Protein (06/27/2025 12:46 PM EDT) C Reactive Protein 0.85(H) < or = 0.50 mg/dL [facility] 06/27/2025 12:4 6 PM EDT 06/27/2025 12:46 PM EDT Generic External Data Provider LAB BLOOD ORDERAB LES Final Result Performing Organization Address City/[facility]/ZIP Co de Phone Number [facility] [address] [place] [phone] * Hemoglobin A1c (06/27/2025 12:46 PM EDT) Hemoglobin A1c 5.2 <6.0 % [facility] Comment:Hemoglobin A1C Refer ence Range Adults: 4.8 - 6.0 % Non diabetic: < 6.0 % Goal: < 7.0 %Additional Action Suggested: > 8.0 %Note: Hemoglobin A1c results are invalid for patients with abnormal amounts of HbF. Blood transfusions may impact the HbA1c concentration in the patient sample. Estimated Average Glucose 103 mg/dL [facility] Comment:eAG = Estimated ave rage glucose which is %A1C expressed asaverage glucose, using the formula of the Z1Z-GajocnoKemouvc Glucose study (ADAG), Diabetes Care, Vol.31,#8,Aug. 2007 06/27/2025 12:4 6 PM EDT 06/27/2025 12:46 PM EDT us Generic External Data Provider LAB BLOOD ORDERAB LES Final Result Performing Organization Address City/[facility]/ZIP Co de Phone Number [facility] [address] [place] [address] [phone] * Ferritin (06/27/2025 12:46 PM EDT) Ferritin 205 10 - 250 ng/mL [facility] 06/27/2025 12:4 6 PM EDT 06/27/2025 12:46 PM EDT Generic External Data Provider LAB BLOOD ORDERAB LES Final Result Performing Organization Address [facility] Co de Phone Number [facility] [address] [place] [phone] * (ABNORMAL) Lipid Panel, Standard (06/27/2025 12:46 PM EDT) Triglycerides 78 <150 mg/dL [facility] Comment:Desirable Triglyceri de: less than 150 mg/dLBorderline High Triglyceride 150-199 mg/dLHigh Triglyceride: 200-499 mg/dLVery High Triglyceride: greater than or equal to 5OO mg/dL Cholesterol 167 <200 mg/dL [facility] Comment:Desirable Cholestero l: less than 200 mg/dLBorderline High Cholesterol: 200-239 mg/dLHigh Cholesterol: greater than 239 mg/dL LDL Cholesterol Calculated 101(H) <100 mg/dL [facility] Comment:Desirable LDL: less than 100 mg/dLNear Optimal/Above Optimal LDL: 110- 129 mg/dLBorderline High LDL: 130-159 mg/dLHigh LDL: 160-189 mg/dLVery High LDL: greater than or equal to 190 mg/dL HDL Cholesterol 51 >40 mg/dL [facility] Comment:Desirable HDL: great er than 40 mg/dL Note: This HDL assay may give artificially low results in patients with liver disease. 06/27/2025 12:4 6 PM EDT 06/27/2025 12:46 PM EDT Generic External Data Provider LAB BLOOD ORDERAB LES Final Result Performing Organization Address [facility]/ZIP Co de Phone Number [facility] [address] [place] [phone] * (ABNORMAL) Comprehensive Metabolic Panel (06/27/2025 12:46 PM EDT) Sodium 143 135 - 145 mmol/L [facility] Potassium 3.7 3.3 - 5.1 mmol/L [facility] Chloride 105 96 - 108 mmol/L [facility] Carbon Dioxide 30(H) 22 - 29 mmol/L [facility] Anion Gap 12 12 - 20 [facility] Urea Nitrogen (BUN) 8(L) 9 - 16 mg/dL [facility] Creatinine, Serum 0.54 0.5 - 1.4 mg/dL [facility] Estimated Glomerular Filt Rate >60 [facility] Comment:Chronic Kidney Disea se: Estimated GFR < 60 mL/min/[id number] Kidney Disease: Estimated GFR < 15 mL/min/1.73m2 Glucose 76 60 - 115 mg/dL [facility] Calcium 9.6 8.4 - 10.2 mg/dL [facility] Bilirubin, Total 1.4(H) 0.0 - 1.0 mg/dL [facility] Aspartate Amino Transferase 27 5 - 31 U/L [facility] Alanine Aminotransferase 24 0 - 31 U/L [facility] Total Protein 7.7 6.5 - 8.0 g/dL [facility] Albumin Level 4.5 3.5 - 5.0 g/dL [facility] Alkaline Phosphatase 99 39 - 117 U/L [facility] 06/27/2025 12:4 6 PM EDT 06/27/2025 12:46 PM EDT us Generic External Data Provider LAB BLOOD ORDERAB LES Final Result [facility] [address] [place] [phone] from Last 3 Months
[2025-07-19 14:10] VITALS: BMI 39.9
--- NOTE | 2025-07-19 14:29 | P.CONAN_ITS ---
Documented by User: Payton Justin NP 07/19/25 14:30 HPI - Anesthesia Eval Consult details Narrative: 55yo F for Upper Endoscopy PMFSH Active Problems Active Problems: All Active Problems S/P gastric bypass (Acute) Anastomotic ulcer (Acute) Lumbar radiculitis (Acute) H/O lumbosacral spine surgery (Acute) Muscle spasm (Acute) Pleuritic chest pain (Acute) Left hip pain (Acute) Lower extremity edema (Acute) Dyspnea (Acute) Leg swelling (Acute) PAC (premature atrial contraction) (Acute) Chronic chest pain (Acute) Palpitation (Acute) Morbid obesity with BMI of 45.0-49.9, adult (Acute) Body mass index [BMI] 45.0-49.9, adult (Acute) Vitamin A deficiency (Acute) Bronchitis (Acute) TOPHER on CPAP (Acute) Asthma (Acute) Lumbar spondylosis (Acute) Fibromyalgia (Acute) Past Medical History Medical History Pleuritic chest pain Lower extremity edema Dyspnea Palpitation COVID-19 Bronchitis TOPHER on CPAP Asthma Lumbar spondylosis Fibromyalgia Chronic chest pain Chronic back pain Fibromyalgia Obstructive sleep apnea Morbid obesity with BMI of 45.0-49.9, adult Migraine headache Family History Family History Father Pacemaker Cardiovascular disease Diabetes mellitus Mother Lupus Brother Seizure disorder Cardiovascular disease Brother No problems noted. Brother No problems noted. Brother No problems noted. Sister No problems noted. Sister No problems noted. Son No problems noted. Daughter No problems noted. Daughter No problems noted. Surgical History Surgical History S/P gastric bypass History of colonoscopy Other specified postprocedural states History of esophagogastroduodenoscopy (EGD) History of right oophorectomy History of History of partial hysterectomy History of neck surgery History of bilateral carpal tunnel release History of Problems with Anesthesia: No Social History Social History Alcohol intake: never Patient Tobacco Use Status: Never used Tobacco e-Cigarette/Vaping Use: Never Used Advance Directives: No Advance Directives Information Provided: Yes Meds Allergies Allergy/AdvReac Type Severity Reaction Status Date / Time No Known Allergies (No Known Allergy Verified 05/14/25 11:33 Allergies*) Exam Height,Weight and Vital Signs: Height 5 ft 2 in Weight 99 kg Assessment and Plan Assessment Anesthesia Assessment: Chart Reviewed Final Anesthetic Review History of Problems with Anesthesia: No Documented by User: Arielle Broussard MD 07/23/25 11:36 [facility] Past Medical History Medical History Pleuritic chest pain Lower extremity edema Dyspnea Palpitation COVID-19 Bronchitis TOPHER on CPAP Asthma Lumbar spondylosis Fibromyalgia Chronic chest pain Chronic back pain Fibromyalgia Obstructive sleep apnea Morbid obesity with BMI of 45.0-49.9, adult Migraine headache Family History Family History Father Pacemaker Cardiovascular disease Diabetes mellitus Mother Lupus Brother Seizure disorder Cardiovascular disease Brother No problems noted. Brother No problems noted. Brother No problems noted. Sister No problems noted. Sister No problems noted. Son No problems noted. Daughter No problems noted. Daughter No problems noted. Surgical History Surgical History S/P gastric bypass History of colonoscopy Other specified postprocedural states History of esophagogastroduodenoscopy (EGD) History of right oophorectomy History of History of partial hysterectomy History of neck surgery History of bilateral carpal tunnel release Social History Social History Alcohol intake: never Patient Tobacco Use Status: Never used Tobacco e-Cigarette/Vaping Use: Never Used Advance Directives: No Advance Directives Information Provided: Yes Meds Allergies Allergy/AdvReac Type Severity Reaction Status Date / Time No Known Allergies (No Known Allergy Verified 05/14/25 11:33 Allergies*) Exam Airway Mallampati Class: II TM Dist: >3cm Neck ROM: Full Heart: rrr Lungs: cta Assessment and Plan Final Anesthetic Review NPO: Yes ASA Class: II Final Preanesthetic Review: No Changes in Pt Med Stat, Meds/Allgs Chart Reviewed and Consent Obtained/Reviewed Patient Risk: Intermediate Procedure Risk: Intermediate Anesthetic Plan Anesthetic Plan: MAC: Disposition: Standard PACU
[2025-07-23 11:27] LABS: Glucose, Whole Blood 83 mg/dL (60-115)
[2025-07-23 11:38] VITALS: BMI 34.2
[2025-07-23 11:56] VITALS: BP 155/83; PULSE 46; RESP 15; TEMP 36.2; O2SAT 99
[2025-07-23] MEDS: Lactated Ringers 1,000 ML 80 ML IVCONT (11:58)
--- NOTE | 2025-07-23 12:07 | PC.NURSE ---
anesthesia made aware of heart rate getting down to 38
--- NOTE | 2025-07-23 13:09 | P.HPSUR_ITS ---
Pre-Procedural Eval Section A - 24 Hr Update-Section A only Date of Service: 07/23/25 The patient is an INPATIENT: No The patient has been examined within 24 hours of the surgical procedure. The History & Physical has been completed within 30 days and I have reviewed it.: Yes Section B - Complete if H&P > 30 days Chief Complaint: Gastric ulcer, unspecified as acute or chronic, Relevant Family History (Specify if Yes): No Relevant Social History: None Present Medications: None Medical History: No relevant PMH History of Previous Operations: Relevant previous surgery/procedure and date(s) (Lap gastric bypass) Allergies: Allergies Allergy/AdvReac Type Severity Reaction Status Date / Time No Known Allergies (No Known Allergy Verified 07/23/25 12:01 Allergies*) Review of Systems Sugical H&P ROS: Negative: Constitution, Cardiovascular, Respiratory, Neurological, Psychiatric, Hem-Onc, Allergic/Immunologic, Gastrointestinal, Genitourinary, Musculoskeletal, Integumentary, Endocrine and Eyes/Ears/Nos e/Throat Exam Surgical H&P Exam: Normal: HEENT, Normal: Heart, Normal: Lungs, Normal: Extremities, Normal: Abdomen, Normal: Skin and Normal: Neurological Plan Diagnosis/Plan: Unchanged (EGD to assess the pouch's anatomy and ulcer status. Risks of bleeding and perforation were discussed with the patient and she is in agreement with the plan.) I have reviewed the history and physical and performed a pertinent physical examination on my patient. No changes have occurred unless specified. Time Spent With Patient Time: Total time managing care of this patient today ____ minutes.
--- NOTE | 2025-07-23 13:15 | P.BOP_ITS ---
Brief Operative Note Date of Service: 07/23/25 Pre-op diagnosis: Anastomotic ulcer Post-op diagnosis: same Procedure: PROCEDURE DATE: ?07/23/2025 PREOPERATIVE DIAGNOSIS: Hx of anastomotic ulcer, s/p gastric bypass POSTOPERATIVE DIAGNOSIS: ?Same as above. Healed anastomotic ulcer and small diaphragmatic hernia PROCEDURE: Weoffeaw-qsedxn-eqhbwsvyesv with biopsies Surgeon: ?Ricardo Newell M.D.. Ph.D. Marine Insulator: ?None ? Anesthesia: IV sedation Estimated blood loss: ?Minimal FINDINGS AND PROCEDURE: ? OPERATIVE INDICATIONS: ?The patient is a 55 year old female known to me who underwent a laparoscopic gastric bypass elsewhere. The patient had inadequate weight loss so far and developed an anastomotic ulcer. She received appropriate treatment and presents for a follow-up endoscopy to assess its status.? Based on this information I recommended an upper endoscopy to evaluate the patient's symptoms.? Risks and complications of the surgery were discussed with the patient in advance particularly the possibility of perforation or bleeding that may require surgical intervention. The patient understood the risks and was in agreement with the plan. ? PROCEDURE: After informed consent was obtained by the patient, the patient was ?transferred to the Operating Room and was placed in the supine position.? After successful induction of IV sedation, a mouth block was placed and the patient was placed in the left lateral decubitus position. An upper endoscopy was performed next, the oropharynx and esophagus appeared within the normal limits. There was 1-2cm reducible hiatal hernia.? The z-line was smooth. The small pouch was entered, appeared to be of normal size. There was no gastritis and the gastrojejunostomy was patent. There was no anastomotic ulcer.? At that point the scope was advanced into the proximal small intestine (proximal Ryan limb) which appeared to be normal as well. The Ryan limb and the pouch were decompressed and the scope was withdrawn from the patient's mouth. The patient was awaken and was transferred in stable condition to the Recovery Room for further care. I was present and performed all steps of the procedure. There were no residents to assist with this case. Ricardo Newell M.D., Ph.D. Surgeon: Candelario Newell MD Anesthesia: MAC Was an Marine Insulator used for this Procedure?: No Estimated blood loss (mL): 0 IV fluids (mL): 400 Urine output (mL): 0 (No Fraire to record output) Pathology: none sent Condition: stable Disposition: PACU
[2025-07-23 13:39] VITALS: BP 140/77; PULSE 67; RESP 16; TEMP 36.3; O2SAT 99
[2025-07-23 13:48] VITALS: BP 161/92; PULSE 64; RESP 16; TEMP 36.4; O2SAT 99
--- NOTE | 2025-07-23 14:20 | PC.NURSE ---
patient c/o Headache 12/25 prior to discharge, Ordered obtained and medicated with Acetaminophen 650mg PO.
== END 2025-07-23 14:24 | disposition home or self-care (01) ==
PROVIDERS: PCP Registered Nurse; Visit Provider Surgery
PROC: 0DJ08ZZ Inspection of Upper Intestinal Tract, Via Natural or Artificial Opening Endoscopic (ICD-10-PCS; CPT 43235; principal; 2025-07-23 13:10)
DX: K25.9 Gastric ulcer, unspecified as acute or chronic, without hemorrhage or perforation (principal); E66.01 Morbid (severe) obesity due to excess calories; Z68.42 Body mass index [BMI] 45.0-49.9, adult; Z98.84 Bariatric surgery status; Z98.0 Intestinal bypass and anastomosis status; M79.7 Fibromyalgia; R00.2 Palpitations; J45.909 Unspecified asthma, uncomplicated; G47.33 Obstructive sleep apnea (adult) (pediatric); Z79.51 Long term (current) use of inhaled steroids; Z79.899 Other long term (current) drug therapy; Z99.89 Dependence on other enabling machines and devices; Z98.890 Other specified postprocedural states
CPT/HCPCS: 43239; 82947; J1596; J2704

== ENCOUNTER → 2025-07-23 10:54 | Outpatient (BNV) | payer MEDICARE, SELFPAY | PROVIDERS: PCP Registered Nurse; Visit Provider Surgery | DX: K44.9 Diaphragmatic hernia without obstruction or gangrene (principal); Z87.11 Personal history of peptic ulcer disease; Z98.84 Bariatric surgery status | CPT/HCPCS: 43239 ==

== ENCOUNTER 2025-08-31 10:19 | Outpatient (REF) | payer MEDICARE, SELFPAY ==
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
[2025-08-31 14:32] LABS: Alanine Aminotransferase 22 U/L (0-31); Albumin Level 4.1 g/dL (3.5-5.0); Alkaline Phosphatase 90 U/L (39-117); Aspartate Amino Transferase 27 U/L (5-31); Total Protein 7.1 g/dL (6.5-8.0)
[2025-08-31 16:43] LABS: CT PCR Urine NOT DETECTED (Not Detect.); NG PCR Urine NOT DETECTED (Not Detect.)
[2025-09-01 08:21] LABS: HIV Num 1 0.09 S/CO (0.00-0.99); ~HepC Num1 0.17 S/CO (0.00-0.79); ~Hepatitis C Antibody Nonreactive (Nonreactive)
== END 2025-08-31 10:20 | disposition home or self-care (01) ==
LOC: HO.CHCLDS 10:19
PROVIDERS: PCP Registered Nurse; Visit Provider Registered Nurse
DX: Z00.00 Encounter for general adult medical examination without abnormal findings (principal); E11.9 Type 2 diabetes mellitus without complications; Z20.2 Contact with and (suspected) exposure to infections with a predominantly sexual mode of transmission
CPT/HCPCS: 80076; 86592; 86803; 87389; 87491; 87591

== ENCOUNTER 2025-10-02 14:45 | Outpatient (AMB) | payer OTHER, SELFPAY ==
--- NOTE | 2025-10-02 11:38 | MHC.OFFVISWM ---
Intake Visit Reasons: (TV) PO LRYGBP *Okay Per AK* Customer Service Technician Required: Yes Customer Service Technician Name: Dex Curtis [id number] Information Interpreted: clinical only Allergies No Known Allergies (No Known Allergies*) Allergy (Verified 09/12/25 09:54) Medication List - Last Reconciled 10/02/25 by ANAND Rodriguez albuterol sulfate 2.5 mg (3 mL) inhalation Q6H PRN albuterol sulfate 90 mcg/actuation (ProAir HFA) 2 puffs inhalation QID PRN cholecalciferol (vitamin D3) 50 mcg PO DAILY tyxzkviuxwk-mvfcmbpuz-npfxkddy 200-62.5-25 mcg (Trelegy Ellipta) 1 inh inhalation DAILY PRN pantoprazole 40 mg PO DAILY sucralfate 10 mL PO BID HPI Comments Details: The patient is a 55 year old female known to me who underwent a laparoscopic gastric bypass in [place]. She returned to [place] and was found to have developed an anastomotic ulcer in 2024. She received appropriate treatment and was later found to have healed anastomotic ulcer and small diaphragmatic hernia on July 2025 endoscopy. She presents today for discussion of next steps. [facility] Medical History (Updated 10/02/25 @ 11:41 by ANAND Rodriguez) Pleuritic chest pain Lower extremity edema Dyspnea Palpitation COVID-19 Bronchitis TOPHER on CPAP Asthma Lumbar spondylosis Fibromyalgia Chronic chest pain Chronic back pain Fibromyalgia Obstructive sleep apnea Morbid obesity with BMI of 45.0-49.9, adult Migraine headache Surgical History (System 09/12/25 @ 09:54 by Analilia López) S/P gastric bypass History of colonoscopy Other specified postprocedural states History of esophagogastroduodenoscopy (EGD) History of right oophorectomy History of History of partial hysterectomy History of neck surgery History of bilateral carpal tunnel release Family History Father Pacemaker Cardiovascular disease Diabetes mellitus Mother Lupus Brother Seizure disorder Cardiovascular disease Brother No problems noted. Brother No problems noted. Brother No problems noted. Sister No problems noted. Sister No problems noted. Son No problems noted. Daughter No problems noted. Daughter No problems noted. Social History (System 09/12/25 @ 09:54 by Analilia J López) Alcohol intake: never Patient Tobacco Use Status: Never used Tobacco e-Cigarette/Vaping Use: Never Used Telehealth Telehealth Telehealth Platform: Telephone Location of provider rendering services: practice address Location of patient: address on file Patient Identification confirmed using: Name, : Yes Telehealth method: voice only Patient verbally consented to treatment: Yes Patient verbally consented to billing insurance company: Yes Patient informed of any privacy concerns related to visit: Yes Minutes spent on Phone/Video with Pt.: 8 Assessment & Plan Assessment & Plan (1) S/P gastric bypass: Code(s): Z98.84 - Bariatric surgery status Category: Surgical (2) Anastomotic ulcer: Code(s): K28.9 - Gastrojejunal ulcer, unspecified as acute or chronic, without hemorrhage or perforation Category: Medical (3) Obesity: Code(s): E66.9 - Obesity, unspecified Category: Medical Plan Discussed with Dr Winters- pt to use a plan from [employer] pilar, with one meal per day. She should continue on pantoprazole and sucralfate indefinitely (refills sent). Texted link to pilar to pt. Encouraged her to reach out with any questions about this. RTC 3mo TV. Medications: New pantoprazole 40 mg PO DAILY 90 tabs 3RF Refilled sucralfate 10 mL PO BID 414 mL 3RF
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
--- OUTSIDE RECORDS SUMMARY | 2025-10-02 19:06 | XMS_ITS | Clinical Summary ---
Author Organization [employer] Address [address] [facility] [address] [place] [address] Care Team Providers Care Hander In Name Role Phone Lisa Dejesus LAYOUT WORKER Primary Care Provider [phone] Allergies No known active allergies Medications cholecalciferol (Vitamin D-3) 50 MCG (1999) capsule Take 50 mcg by mouth. 5 Active pantoprazole (ProtoNix) 40 MG EC tablet Take 40 mg by mouth Once per day. 1 Active sucralfate (Carafate) 1 GM/10ML suspension Take 10 mL by mouth. 5 Active Umeclidinium Muir (Incruse Ellipta) 62.5 MCG/ACT aerosol powder Inhale 1 puff Once per day. 4 Active venlafaxine (Effexor) 75 MG tablet Take 75 mg by mouth Once per day. Active albuterol 108 (90 Base) MCG/ACT inhaler Inhale 2 puffs every 4 (four) hours if needed for wheezing or shortness of breath. 18 g 2 5 Active Active Problems Problem Noted Date Diagnosed Date Healthcare maintenance 08/31/2025 Overview (09/02/2025): Mammo: BIRADS on 07/09/25 at [facility] Pap: N/A history of hysterectomy w/ removal of cervix Colonoscopy: reports completed ~2018 at [facility], request records Anastomotic ulcer 08/31/2025 Assessment & Plan (09/02/2025 6:46 PM EST): EGD completed 02/19/[address] Newell revealing normal postoperative anatomy except for small anastomotic ulcer. She continues on sucralfate and pantoprazole with good result. Lumbar spondylosis 08/31/2025 S/P gastric bypass 12/05/2024 Assessment & Plan (09/02/2025 6:48 PM EST): - Status post gastric bypass with significant weight loss and improvement in metabolic parameters. - Monitor nutritional status and vitamin supplementation. - Surgery completed Nov 2024 in [place] - Currently following with [facility] Weight Management - Continues with daily vitamin supplementation Type 2 diabetes mellitus without complications 0 02/02/2023 Overview (09/02/2025): Lab Results Component Value Date HGBA1C 5.2 06/27/2025 Assessment & Plan (09/02/2025 6:45 PM EST): - Currently well controlled off medication Previous medications: metformin XR 500 mg BID and trulicity - Continue diet and exercise recommendations Fibromyalgia 11/30/2022 Assessment & Plan (09/02/2025 6:09 PM EST): - Fibromyalgia with intermittent pain exacerbated by cold weather. - Monitor symptoms. No changes to current management. Steatosis of liver 11/30/2022 Assessment & Plan (09/02/2025 6:17 PM EST): - Noted on outside US from Sep 2022 Lab Results Component Value Date AST 27 06/27/2025 ALT 24 06/27/2025 TOTPROTEIN 7.7 06/27/2025 ALB 4.5 06/27/2025 ALP 99 06/27/2025 TOTALBILIRUB 1.4 (H) 06/27/2025 - Plan to repeat liver function and bilirubin direct Gastroesophageal reflux disease 09/19/2019 H/O lumbosacral spine surgery 09/19/2019 Asthma, moderate persistent 06/24/2018 Overview (08/29/2025): [facility] Pulmonary Assessment & Plan (09/02/2025 6:49 PM EST): - Asthma currently well controlled. No recent episodes of wheezing or dyspnea. Uses albuterol inhaler as needed; no need for controller inhaler at present. - Prescribed albuterol inhaler for use as needed. Advised to monitor frequency of inhaler use; if more than twice weekly, consider initiation of controller therapy. Continue montelukast as previously prescribed. Obstructive sleep apnea syndrome 12/24/2016 Overview (08/31/2025): not using cpap since bariatric surgery Resolved Problems Problem Noted Date Diagnosed Date Resolved Date Tear of medial meniscus of r ight knee, current 01/21/2024 09/02/2025 Pain of left breast 12/18/2022 09/02/20 25 Overview (08/31/2025): Seen by breast surgeon, Dr. Landers, recommend routine screening. Encounters Date Type Department Care Team Description 09/18/2025 Telephone [facility] [address] [place] [address] Lisa Dejeuss FNP Results 09/04/2025 Results Follow-Up [facility] [address] [place] [address] Lisa Dejesus FNP POCT Glucose, Hepatic Function Panel, RPR (Monitor) with Reflex to Titer, Additional followed-up results: 2 08/31/2025 9:00 AM EST Office Visit [facility] [address] [place] [address] Lisa Dejesus FNP Type 2 diabetes mellitus without complications, unspecified whether residential insulin use (HCC) (Primary Dx); Healthcare maintenance; S/P gastric bypass; Encounter for screening for infections with a predominantly sexual mode of transmission; Dietary counseling; Exercise counseling; Muscle soreness; Fibromyalgia; Steatosis of liver; Anastomotic ulcer; Moderate persistent asthma without complication 08/31/2025 Travel 08/29/2025 Telephone [facility] [address] [place] [address] Lisa Dejesus FNP Chart Prep 08/24/2025 Patient Outreach [facility] [address] [place], [place] [phone] Lisa Dejesus FNP Pre-visit Planning (SDOH screening is positive , Tobacco screening is negative) from Last 3 Months Immunizations Immunization Administration Dates Next Due Influenza, IIV3, injectable 10/02/2015 Otoniel SARS-CoV-2 Vaccination 01/25/2021 Tdap 02/11/2017 Social History Tobacco Use Types Packs/Day Years Used Date Smoking Tobacco: Former Cigarettes Smokeless Tobacco: Former Tobacco Cessation:Counseling Given: Not Answered Depression Answer Date Recorded Patient Health Questionnaire-9 [...] Don't know 08/30/2025 11 :38 AM EST Last Filed Vital Signs Vital Sign Reading Time Taken Comments Blood Pressure 135/81 08/31/2025 9:31 AM EST Pulse 61 08/31/2025 9:31 AM EST Temperature 36.3 C (97.3 F) 08/31/2025 9:31 AM EST Respiratory Rate 16 08/31/2025 9:31 AM EST Oxygen Saturation 99% 08/31/2025 9:31 AM EST Inhaled Oxygen Concentration - - Weight 80.7 kg (178 lb) 08/31/2025 9:31 AM EST Height 160 cm (5' 3 ) 08/31/2025 9:31 AM EST Body Mass Index 31.53 08/31/2025 9:31 AM EST Plan of Treatment Upcoming Encounters Date Type Department Care Team (Late st Contact Info) Description 10/10/2025 10:30 AM EST Telemedicine [facility] [address] [place], [place] [phone] Lisa Dejesus FNP [address], [place] [phone] 12/07/2025 8:45 AM EST Office Visit [facility] [address], [place] [phone] Lisa Dejesus FNP [address], [place] [phone] Health Maintenance Due Date Last Done Comments CT Colonography 1969 Colonoscopy 1969 Colorectal Cancer Screening 1969 FIT DNA/Cologuard 1969 FIT 1969 FOBT 1969 Sigmoidoscopy 1969 Diabetes: Foot Exam 1979 Eye Exam 1979 Hepatitis A Vaccines (1 of 2 - Risk 2-dose series) 1988 Hepatitis B Vaccines (1 of 3 - 19+ 3-dose series) 1988 Pneumococcal Vaccine: 50+ Years (1 of 2 - PCV) 1988 RSV Patients and Patients Aged 60 years or older (1 - Risk 50-74 years 1-dose series) 2019 Zoster Vaccines (1 of 2) 2019 Diabetes: Urine Protein Screening 10/09/2025 10/09/2024, 02/29/2024 Diabetes: Hemoglobin A1C 12/25/2025 06/27/2025, 12/12/2023 Influenza Vaccine (#1) 2026 10/02/2015 Postp oned from 06/18/2025 (Patient Refused) Lipid Panel 06/27/2026 06/27/2025 Mammogram 07/09/2026 07/09/2025, 06/19, 12/23/2023, Additional history exists Alcohol/Substance Use Screening 08/31/2026 08/31/2025 COVID-19 Vaccine (2 - season) 2026 01/25/2021 Postponed from 06/18/2025 (Patient Refused) Depression Screening 08/31/2026 08/31/2025, 08/31/20 Disability Screening 08/31/2026 08/31/2025 SDOH Screening 08/31/2026 08/31/2025 Tobacco Screening 08/31/2026 08/31/2025 DTaP/Tdap/Td Vaccines (2 - Td or Tdap) 02/11/2027 02/11/2017 HIV Screening Completed 08/31/2025, 11/30/2022 Hepatitis C Screening Completed 08/31/2025, 023 HIB Vaccines Aged Out No longer [...] on patient's age to complete this topic Goals Goal Patient Goal Type Associated Problems [...] Plan Patient has chronic kidney disease No Mariann Morel RN Procedures Procedure Name Priority Date/Time Associated Diagnosis Comments CHLAMYDIA/TRICHOMON /NEISSERIA GONORRHOEAE, PCR, URINE Routine 08/31/2025 10:35 AM EST Type 2 diabetes mellitus without complications, unspecified whether residential insulin use (HCC) HEPATITIS C AB W/REFL TO HCV RNA, QN, PCR Routine 08/31/2025 10:28 AM EST HIV 1/2 ANTIGEN/ANTIBODY, FOURTH GENERATION W/RFL Routine 08/31/2025 10:28 AM EST Healthcare maintenance RPR (MONITOR) W/REFL TITER Routine 08/31/2025 10:28 AM EST Healthcare maintenance Encounter for screening for infections with a predominantly sexual mode of transmission HEPATIC FUNCTION PANEL Routine 08/31/2025 10:28 AM EST Type 2 diabetes mellitus without complications, 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 Gonorrhoeae, PCR, Urine (08/31/2025 10:35 AM EST) CT PCR, Urine NOT DETECTED Not Detect. [facility] Comment:A not detected test result does not exclude the possibilityof infection because test results can be affected byimproper specimen collection, concurrent antibiotic therapy,or the number of organisms in the specimen which may bebelow the sensitivity of the test. As with many diagnostictests, results from the Xpert CT/NG assay should beinterpreted in conjunction with other laboratory andclinical data available to the clinician.The Xpert CT/NG assay should not be used for the evaluationof suspected sexual abuse or for other medico-legalindications. Additional testing is recommended in anycircumstance when false positive or false negative resultscould lead to adverse medical, social or psychologicalconsequences. NG PCR, Urine NOT DETECTED Not Detect. [facility] Comment:A not detected test result does not exclude the possibilityof infection because test results can be affected byimproper specimen collection, concurrent antibiotic therapy,or the number of organisms in the specimen which may bebelow the sensitivity of the test. As with many diagnostictests, results from the Xpert CT/NG assay should beinterpreted in conjunction with other laboratory andclinical data available to the clinician.The Xpert CT/NG assay should not be used for the evaluationof suspected sexual abuse or for other medico-legalindications. Additional testing is recommended in anycircumstance when false positive or false negative resultscould lead to adverse medical, social or psychologicalconsequences. Urine (Urine, Random) 08/31/2025 10:35 AM EST 08/31/2025 2:14 PM EST [employer] [facility] LAB URINE ORDERABLES Final Res ult Performing Organization Address [facility] Co de Phone Number [facility] [address] [place] [phone] * Hepatitis C Antibody with Reflex to HCV, RNA, Quantitative, Real-Time PCR (08/31/2025 10:28 AM EST) Hepatitis C Antibody Nonreactive Nonreactive [facility] Comment:Antibodies to HCV no t detected; does not exclude early acuteHCV infection. 08/31/2025 10:2 8 AM EST 08/31/2025 2:08 PM EST [employer] LAB BLOOD ORDERABLES Final Res ult Performing Organization Address [facility] Co de Phone Number [facility] [address] [place] [phone] * RPR (Monitor) with Reflex to??Titer (08/31/2025 10:28 AM EST) RPR (Monitor) w/Refl Titer NON-REACTI VE NON-REACT ANTHONY [facility] Comment:THIS TEST WAS PERFOR MED AT:[employer] [place] [phone] MACKEY MD Rapid Plasma Reagin Ab Titer TNP [facility] Blood Venous blood specimen / Unknown 08/31/2025 10:28 AM EST 08/31/2025 2:08 PM EST us Lisa Dejesus [facility] LAB BLOOD ORDERABLES Final Res ult Performing Organization Address City/[facility] Co de Phone Number [facility] [address] [place] [phone] * HIV-1/2 Antigen and Antibodies, Fourth Generation, with Reflexes (08/31/2025 10:28 AM EST) HIV AB/AG Nonreactive Nonreactive [facility] Comment:HIV-1 p24 Ag and/or HIV-1/HIV-2 Ab not detected.A test result that is nonreactive does not exclude thepossibility of exposure to or infection with HIV-1 and/orHIV-2. Nonreactive results in this assay for individualswith prior exposure to HIV-1 and/or HIV-2 may be due toantigen and antibody levels that are below the limit ofdetection of this assay.The [employer] HIV Ag/Ab Combo assay result andsupplemental assay results should be interpreted inconjunction with the patient's clinical presentation,history and other laboratory results. If the results areinconsistent with clinical evidence, additional testing issuggested to confirm the result. Blood Venous blood specimen / Unknown 08/31/2025 10:28 AM EST 08/31/2025 2:08 PM EST us Lisa Dejesus [facility] LAB BLOOD ORDERABLES Final Res ult Performing Organization Address [facility]/ZIP Co de Phone Number [facility] [address] [place] [phone] * Hepatic Function Panel (08/31/2025 10:28 AM EST) Bilirubin, Total 0.9 0.0 - 1.0 mg/dL [facility] Bilirubin, Direct 0.3 0.0 - 0.5 mg/dL [facility] Aspartate Amino Transferase 27 5 - 31 U/L [facility] Alanine Aminotransferase 22 0 - 31 U/L [facility] Total Protein 7.1 6.5 - 8.0 g/dL [facility] Albumin Level 4.1 3.5 - 5.0 g/dL [facility] Alkaline Phosphatase 90 39 - 117 U/L [facility] Blood Venous blood specimen / Unknown 08/31/2025 10:28 AM EST 08/31/2025 2:08 PM EST Lisa Dejesus LAYOUT WORKER LAB BLOOD ORDERABLES Final Res ult Performing Organization Address [facility] Co de Phone Number [facility] [address] [place] [phone] * POCT Glucose (08/31/2025 9:36 AM EST) Pathologist [facility] Glucose Blood, POC 87 60 - 200 mg/dL QC Media Lot # [id number] Lot# Expiration Date Blood Capillary blood specimen / Unknown 08/31/2025 9:36 AM EST us Lisa Phalen LAYOUT WORKER POINT OF CARE TEST ENTER/EDIT ORDERABLES Final Result * Glucose, Whole Blood (07/23/2025 11:21 AM EDT) Glucose, Whole Blood 83 60 - 115 mg/dL [facility] Comment:METER #: [id number] 07/23/2025 11:2 1 AM EDT 07/23/2025 11:26 AM EDT us Generic External Data Provider LAB BLOOD ORDERAB LES Final Result Performing Organization Address [facility] Co de Phone Number [facility] [address] [place] [phone] * Hemoglobin A1c (06/27/2025 12:46 PM EDT) Hemoglobin A1c 5.2 <6.0 % [facility] Comment:Hemoglobin A1C Refer ence Range Adults: 4.8 - 6.0 % Non diabetic: < 6.0 % Goal: < 7.0 %Additional Action Suggested: > 8.0 %Note: Hemoglobin A1c results are invalid for patients with abnormal amounts of HbF. Blood transfusions may impact the HbA1c concentration in the patient sample. Estimated Average Glucose 103 mg/dL [facility] Comment:eAG = Estimated ave rage glucose which is %A1C expressed asaverage glucose, using the formula of the [id number] Glucose study (ADAG), Diabetes Care, Vol.31,#8,May. 2007 06/27/2025 12:4 6 PM EDT 06/27/2025 12:46 PM EDT us Generic External Data Provider LAB BLOOD ORDERAB LES Final Result Performing Organization Address [facility] Co de Phone Number [facility] [address] [place] [phone] * (ABNORMAL) Lipid Panel, Standard (06/27/2025 12:46 PM EDT) Triglycerides 78 <150 mg/dL [facility] Comment:Desirable Triglyceri de: less than 150 mg/dLBorderline High Triglyceride 150-199 mg/dLHigh Triglyceride: 200-499 mg/dLVery High Triglyceride: greater than or equal to 5OO mg/dL Cholesterol 167 <200 mg/dL [facility] Comment:Desirable Cholestero l: less than 200 mg/dLBorderline High Cholesterol: 200-239 mg/dLHigh Cholesterol: greater than 239 mg/dL LDL Cholesterol Calculated 101(H) <100 mg/dL [facility] Comment:Desirable LDL: less than 100 mg/dLNear Optimal/Above Optimal LDL: 110- 129 mg/dLBorderline High LDL: 130-159 mg/dLHigh LDL: 160-189 mg/dLVery High LDL: greater than or equal to 190 mg/dL HDL Cholesterol 51 >40 mg/dL [facility] Comment:Desirable HDL: great er than 40 mg/dL Note: This HDL assay may give artificially low results in patients with liver disease. 06/27/2025 12:4 6 PM EDT 06/27/2025 12:46 PM EDT us Generic External Data Provider LAB BLOOD ORDERAB LES Final Result Performing Organization Address City/State/[facility] Co de Phone Number [facility] [address] [place] [phone] from Last 3 Months or Most Recently Relevant to Health Maintenance Additional Health Concerns Active Problems Noted Date Diagnosed Date Help patients manage their type 2 diabetes 08/29 Patient has chronic kidney disease 08/29/2025 Patient has chronic kidney disease 08/30/2025 Patient has chronic kidney disease 09/04/2025 Patient has chronic kidney disease 09/18/[address] [address] [place] [id number] Care Teams Hander In Relationship Specialty Start Date End Date Lisa Dejesus FNP [address] [place] [phone] PCP - General Family Medicine 08/31/25
== END 2025-10-02 14:45 | disposition home or self-care (01) ==
LOC: HO.HBS 14:45
PROVIDERS: PCP Registered Nurse; Visit Provider Physician Assistant Surgical
DX: E66.812 Obesity, class 2 (principal); Z68.35 Body mass index [BMI] 35.0-35.9, adult; K28.9 Gastrojejunal ulcer, unspecified as acute or chronic, without hemorrhage or perforation; Z98.84 Bariatric surgery status
CPT/HCPCS: 99213; G2211